=== PATIENT | female | born 1955 | race African-American/Black ===

== ENCOUNTER 2017-04-10 12:37 | Inpatient (IN) | payer OTHER ==
[2017-04-10 17:12] VITALS: BMI 24.7
--- NOTE | 2017-04-10 19:15 | HP ---
COWS - Scale Resting Pulse: 0= OR 80 or Below Sweatin= Chills/Flushing Restless Observation: 3= Extraneous Movement Pupil Size: 1= Pupils >than Normal Bone or Joint Aches: 2= Severe Diffuse Aches Runny Nose/ Eye Tearin= Runny Nose/Eyes GI Upset > 30mins: 1= Stomach Cramp Tremor Observation: 2= Slight Tremor Visible Yawning Observation: 0= None Anxiety or Irritability: 2=Irritable/Anxious Goose Flesh Skin: 0=Smooth Skin COWS Score: 14 CIWA Score - CIWA Score Nausea/Vomitin-Mild Nausea/No Vomiting Muscle Tremors: 4-Moderate,w/Arms Extend Anxiety: 4-Mod. Anxious/Guarded Agitation: 4-Moderately Restless Paroxysmal Sweats: 1-Minimal Palms Moist Orientation: 1-Uncertain about Date Tacttile Disturbances: 0-None Auditory Disturbances: 0-None Visual Disturbances: 0-None Headache: 1-Very Mild CIWA-Ar Total Score: 16 Admission ROS S - HPI Chief Complaint: WITHDRAWAL SX Allergies/Adverse Reactions: Allergies Allergy/AdvReac Type Severity Reaction Status Date / Time No Known Allergies Allergy Verified 04/10/17 18:15 History of Present Illness: 61 YEARS OLD FEMALE WITH LONG HISTORY OF ALCOHOL HEROIN NICOTINE DEPENDENCE HAS GERD AND DEPRESSION IS ADMITTED TO DETOX Exam Limitations: No Limitations - Ebola screening Have you traveled outside of the country in the last 21 days: No Have you had contact with anyone from an Ebola affected area: No Have you been sick,other than usual withdrawal symptoms: No Do you have a fever: No - Review of Systems Constitutional: Chills, Changes in sleep, Weight Stable EENT: reports: Other (CHRONIC DIZZINESS EYE GLASSES) Respiratory: reports: No Symptoms reported Cardiac: reports: No Symptoms Reported, Chest Pain (TREATED AT HOSPITAL FROM -04/04 NEGATIVE DIAGNOSITC TESTS, NO TREATMENT) GI: reports: Nausea, Poor Fluid Intake, Indigestion, Abdominal cramping : reports: No Symptoms Reported Musculoskeletal: reports: Back Pain, Joint Pain, Muscle Pain, Neck Pain Integumentary: reports: No Symptoms Reported Neuro: reports: Tremors Endocrine: reports: No Symptoms Reported Hematology: reports: No Symptoms Reported Psychiatric: reports: Judgement Intact, Depressed Other Systems: Reviewed and Negative Patient History - Patient Medical History Hx Anemia: No Hx Asthma: No Hx Chronic Obstructive Pulmonary Disease (COPD): No Hx Cancer: No Hx Cardiac Disorders: No Hx Congestive Heart Failure: No Hx Hypertension: No Hx Hypercholesterolemia: No Hx Pacemaker: No HX Cerebrovascular Accident: No Hx Seizures: No Hx Dementia: No Hx Diabetes: No Hx Gastrointestinal Disorders: Yes Hx Liver Disease: No Hx Genitourinary Disorders: No Hx Sexually Transmitted Disorders: No Hx Renal Disease (ESRD): No Hx Thyroid Disease: No Hx Human Immunodeficiency Virus (HIV): No Hx Hepatitis C: No Hx Depression: Yes Hx Suicide Attempt: No Hx Bipolar Disorder: No Hx Schizophrenia: No - Patient Surgical History Past Surgical History: Yes Hx Neurologic Surgery: No Hx Cataract Extraction: No Hx Cardiac Surgery: No Hx Lung Surgery: No Hx Breast Surgery: No Hx Breast Biopsy: No Hx Abdominal Surgery: Yes (2013 INTESTINAL OBSTRUCTION ) Hx Appendectomy: No Hx Cholecystectomy: No Hx Genitourinary Surgery: No Hx Section: No Hx Orthopedic Surgery: Yes (RIGHT WRIST GANGLIOMA REMOVED 2010) Hx Hysterectomy: Yes (1978) Anesthesia Reaction: No - PPD History Previous Implant?: Yes Documented Results: Negative w/o proof Implanted On Prior R Admission?: No PPD to be Administered?: Yes - Reproductive History Patient is a Female of Child Bearing Age (11 -55 yrs old): No Patient : No - Smoking Cessation Smoking history: Current every day smoker Have you smoked in the past 12 months: Yes Aproximately how many cigarettes per day: 5 Cigars Per Day: 0 Hx Chewing Tobacco Use: No Initiated information on smoking cessation: Yes 'Breaking Loose' booklet given: 04/10/17 - Substance & Tx. History Hx Alcohol Use: Yes Hx Substance Use: Yes Substance Use Type: Alcohol, Opiates Hx Substance Use Treatment: Yes - Substances Abused Alcohol Route: Oral Frequency: Daily Amount used: LIQUOR- 2 PINTS, BEER- 1 SIX PACK Age of first use: 14 Date of Last Use: 04/10/17 Heroin Route: Inhalation Frequency: Daily Amount used: 15 BAGS Age of first use: 18 Date of Last Use: 04/10/17 Family Disease History - Family Disease History Family Disease History: Heart Disease: Mother (), Other: Father (KILLED ) Admission Physical Exam BHS - Vital Signs Vital Signs: Vital Signs - 24 hr 04/10/17 17:09 Temperature 98.1 F Pulse Rate 78 Respiratory 18 Rate Blood Pressure 134/75 - Physical General Appearance: Yes: Appropriately Dressed, Mild Distress, Thin, Tremorous, Irritable, Sweating, Anxious HEENTM: Yes: Hearing grossly Normal, Normal ENT Inspection, Normocephalic, Normal Voice Respiratory: Yes: Chest Non-Tender, Lungs Clear, Normal Breath Sounds, No Respiratory Distress, No Accessory Muscle Use Neck: Yes: Supple, Trachea in good position Breast: Yes: Breasts Symetrical Cardiology: Yes: Regular Rhythm, Regular Rate, S1, S2 Abdominal: Yes: Non Tender, Soft Genitourinary: Yes: Within Normal Limits Back: Yes: Normal Inspection Musculoskeletal: Yes: full range of Motion, Gait Steady, Back pain, Muscle Pain Extremities: Yes: Normal Inspection, Normal Range of Motion, Non-Tender, Tremors Neurological: Yes: Alert, Motor Strength 5/5, Normal Response, Depressed Affect Integumentary: Yes: Warm Lymphatic: Yes: Within Normal Limits - Diagnostic (1) Alcohol dependence with uncomplicated withdrawal Current Visit: Yes Status: Acute (2) Opioid dependence with withdrawal Current Visit: Yes Status: Acute (3) GERD (gastroesophageal reflux disease) Current Visit: Yes Status: Chronic Qualifiers: Esophagitis presence: without esophagitis Qualified Code(s): K21.9 - Gastro-esophageal reflux disease without esophagitis (4) Nicotine dependence Current Visit: Yes Status: Acute Qualifiers: Nicotine product type: cigarettes Substance use status: in withdrawal Qualified Code(s): F17.213 - Nicotine dependence, cigarettes, with withdrawal (5) Depression (emotion) Current Visit: Yes Status: Suspected Qualifiers: Depression Type: dysthymia Qualified Code(s): F34.1 - Dysthymic disorder Cleared for Admission [facility] - Detox or Rehab [facility] Level of Care: Medically Managed Detox Regimen/Protocol: Methadone/Librium [facility] Breath Alcohol Content Breath Alcohol Content: 0 Urine Pregancy Test - Result Urine Test Results: Negative- NO Line Present Urine Drug Screen - Results Drug Screen Negative: No Urine Drug Screen Results: OPI-Opiates, OXY-Oxycodone
[2017-04-10] MEDS ORDERED: MAGNESIUM HYDROX 2400MG/30ML ORAL SUSPENSION 30 ML CUP PO PRN (19:24)
[2017-04-10] MEDS ORDERED: LOPERAMIDE HCL 2 MG CAPSULE PO PRN (19:24)
[2017-04-10] MEDS ORDERED: MENTHOL/PHENOL 1 EACH UD MM PRN (19:24)
[2017-04-10] MEDS ORDERED: diphenhydrAMINE HCL 50 MG CAPSULE PO PRN (19:24)
[2017-04-10] MEDS ORDERED: MAG HYDROX/AL HYDROX/SIMETH 30 ML UNIT-DOSE CUP PO PRN (19:24)
[2017-04-10] MEDS ORDERED: MAGNESIUM CITRATE 300 ML BOTTLE PO PRN (19:24)
[2017-04-10] MEDS ORDERED: chlordiazePOXIDE HCL 25 MG CAPSULE PO PRN (19:24)
[2017-04-10] MEDS ORDERED: NICOTINE POLACRILEX 2 MG GUM BC PRN (19:24)
[2017-04-10] MEDS ORDERED: guaiFENesin/D-METHORPHAN HB 10 ML UNIT-DOSE CUPS PO PRN (19:24)
[2017-04-10] MEDS ORDERED: METHADONE HCL 10 MG TABLET (FOR DETOX USE ONLY) PO ONE ×2 (19:24→23:00)
[2017-04-10] MEDS ORDERED: P-EPHED 60MG/TRIPROLIDI 2.5MG TABLET PO PRN (19:24)
[2017-04-10] MEDS: RANITIDINE HCL 150 MG TABLET (FP) PO SCH (22:52)
[2017-04-10] MEDS: chlordiazePOXIDE HCL 25 MG CAPSULE PO SCH (22:53)
[2017-04-10] MEDS: THIAMINE HCL 100 MG TABLET (FP) PO SCH (22:53)
[2017-04-11 01:52] LABS: URINE APPEARANCE CLEAR; URINE BILIRUBIN NEGATIVE (NEGATIVE); URINE BLOOD NEGATIVE (NEGATIVE); URINE COLOR AMBER; URINE GLUCOSE (UA) NEGATIVE (NEGATIVE); URINE KETONE NEGATIVE (NEGATIVE); URINE NITRITE NEGATIVE (NEGATIVE); URINE PROTEIN NEGATIVE (NEGATIVE); URINE UROBILINOGEN 2.0 E.U/dl E.U./dl (0.2-1.0)
[2017-04-11 03:04] LABS: URINE LEUK ESTERASE TRACE (NEGATIVE)
[2017-04-11 03:09] LABS: URINE MUCUS MANY; URINE RBC 3 /hpf (0-3); URINE WBC 2 /hpf (3-5)
[2017-04-11] MEDS: chlordiazePOXIDE HCL 25 MG CAPSULE PO SCH ×4 (05:55→23:00)
[2017-04-11] MEDS ORDERED: METHADONE HCL 10 MG TABLET (FOR DETOX USE ONLY) PO SCH (10:00)
[2017-04-11 10:49] LABS: MCH 26.9 pg (25.7-33.7); MCHC 33.2 g/dl (32.0-36.0); MEAN CELL VOLUME 81.2 fl (80-96); MEAN PLT VOLUME 9.9 fl (7.5-11.1); PLATELET COUNT 163 K/MM3 (134-434); RDW 14.5 % (11.6-15.6); WHITE BLOOD COUNT 5.2 K/mm3 (4.0-10.0)
[2017-04-11] MEDS: NICOTINE 14 MG/24 HOURS TOPICAL PATCH TD SCH (10:59)
[2017-04-11] MEDS: RANITIDINE HCL 150 MG TABLET (FP) PO SCH ×2 (10:59→23:00)
[2017-04-11] MEDS: PRENATAL VITAMINS W/ FOLIC ACID TABLET (FP) PO SCH (10:59)
[2017-04-11 11:28] LABS: ALBUMIN 3.1 g/dl (3.4-5.0); ALK PHOS 65 U/L (45-117); ANION GAP 9 (8-16); BILIRUBIN,TOTAL 0.2 mg/dL (0.2-1.0); CALCIUM 8.8 mg/dL (8.5-10.1); CO2 28 mmol/L (21-32); CREATININE 0.6 mg/dL (0.55-1.02); GLUCOSE,RANDOM 97 mg/dL (74-106); SGOT/AST 9 U/L (15-37); SGPT/ALT 9 U/L (12-78); TOT PROT 6.3 g/dl (6.4-8.2)
--- NOTE | 2017-04-11 16:09 | CONSULT ---
[facility] Psychiatric Consult - Data Date of interview: 04/11/17 Admission source: [facility] Identifying data: Readmission to [facility] for this 61 y/o AA female seeking detox treatment for alcohol and heroin dependence.Patient is single without children,domiciled,unemployed and supported on [facility] benefits. Substance Abuse History: - Smoking Cessation. Smoking history: Current every day smoker. Have you smoked in the past 12 months: Yes. Aproximately how many cigarettes per day: 5. Cigars Per Day: 0. Hx Chewing Tobacco Use: No. Initiated information on smoking cessation: Yes. 'Breaking Loose' booklet given : 04/10/17. - Substance & Tx. History. Hx Alcohol Use: Yes. Hx Substance Use : Yes. Substance Use Type: Alcohol, Opiates. Hx Substance Use Treatment: Yes. - Substances Abused. Alcohol. Route: Oral. Frequency: Daily. Amount used: LIQUOR- 2 PINTS, BEER- 1 SIX PACK. Age of first use: 14. Date of Last Use: 04/10/17. Heroin. Route: Inhalation. Frequency: Daily. Amount used: 15 BAGS. Age of first use: 18. Date of Last Use: 04/10/17. Confirmed by patient. Medical History: Arthritis,lupus,past history of intestinal obstruction (2013), hysterectomy (1978) and surgical excision of a ganglioma in the right wrist ( 2010). Psychiatric History: No reported history of psychiaric hospitalizations.Patient denies having received " any diagnosis of mental illness." Ms Bender is prescribed seroquel 50 mg/hs by her primary care doctor to address insomnia.No history of suicide attempts. Physical/Sexual Abuse/Trauma History: Patient denies. Additional Comment: Urine Drug Screen Results: OPI-Opiates, OXY-Oxycodone.Noted. Mental Status Exam - Mental Status Exam Alert and Oriented to: Time, Place, Person Cognitive Function: Good Patient Appearance: Well Groomed (edentulous) Mood: Hopeful, Euthymic Affect: Appropriate, Normal Range Patient Behavior: Fatigued, Appropriate, Cooperative Speech Pattern: Clear Voice Loudness: Normal Thought Process: Goal Oriented Hallucinations: Denies Suicidal Ideation: Denies Homicidal Ideation: Denies Insight/Judgement: Poor Sleep: Poorly, Difficulty falling asleep Appetite: Fair Muscle strength/Tone: Normal Gait/Station: Normal Psychiatric Findings - Problem List ([place] 1, 2,3) (1) Alcohol dependence with uncomplicated withdrawal Current Visit: Yes Status: Acute (2) Opioid dependence with withdrawal Current Visit: Yes Status: Acute (3) Nicotine dependence Current Visit: Yes Status: Acute Qualifiers: Nicotine product type: cigarettes Substance use status: in withdrawal Qualified Code(s): F17.213 - Nicotine dependence, cigarettes, with withdrawal (4) Substance induced mood disorder Current Visit: Yes Status: Acute (5) GERD (gastroesophageal reflux disease) Current Visit: Yes Status: Chronic Qualifiers: Esophagitis presence: without esophagitis Qualified Code(s): K21.9 - Gastro-esophageal reflux disease without esophagitis (6) Insomnia Current Visit: Yes Status: Acute - Initial Treatment Plan Initial Treatment Plan: Psychoeducation.Detoxification.Seroquel 50 mg po hs.Side effects/benefits discussed with the patient.Consent (verbal) given.Observation.Pharmacy claims reviewed : on 03/31/17 scripts were issued for seroquel 50 mg/hs # 30 tablets @ the [facility].NO scripts needed at discharge from [facility].
--- NOTE | 2017-04-11 18:45 | PN ---
S CIWA - CIWA Score Nausea/Vomitin Muscle Tremors: 4-Moderate,w/Arms Extend Anxiety: 3 Agitation: 1-Slight > Activity Paroxysmal Sweats: 3 Orientation: 2-Disoriented Date<2 days Tacttile Disturbances: 1-Very Mild Itch/Numbness Auditory Disturbances: 0-None Visual Disturbances: 2-Mild Sensitivity Headache: 0-None Present CIWA-Ar Total Score: 18 BHS COWS - Scale Resting Pulse: 0= [place] 80 or Below Sweatin=Flushed/Facial Moisture Restless Observation: 1= Difficult to Sit Still Pupil Size: 0= Normal to Room Light Bone or Joint Aches: 2= Severe Diffuse Aches Runny Nose/ Eye Tearin= Runny Nose/Eyes GI Upset > 30mins: 1= Stomach Cramp Tremor Observation of Outstretched Hands: 2= Slight Tremor Visible Yawning Observation: 1= 1-2x During Session Anxiety or Irritability: 2=Irritable/Anxious Goose Flesh Skin: 0=Smooth Skin COWS Score: 13 S Progress Note (SOAP) Subjective: Stomach Cramping, Tremors, Nausea, Sweating. Objective: PT. A & O X 2 (DISORIENTED ABOUT DAY / DATE). 04/11/17 18:42 Vital Signs Temperature 98.1 F 04/11/17 18:28 Pulse Rate 73 04/11/17 18:28 Respiratory Rate 18 04/11/17 18:28 Blood Pressure 100/58 04/11/17 18:28 O2 Sat by Pulse Oximetry (%) Laboratory Tests 04/10/17 04/11/17 04/11/17 00:35 07:50 07:50 WBC 5.2 RBC 4.33 Hgb 11.6 Hct 35.1 MCV 81.2 MCHC 33.2 RDW 14.5 Plt Count 163 MPV 9.9 Sodium 140 Potassium 3.8 Chloride 103 Carbon Dioxide 28 Anion Gap 9 BUN 12 Creatinine 0.6 Creat Clearance w eGFR > 60 Random Glucose 97 Calcium 8.8 Total Bilirubin 0.2 AST 9 L ALT 9 L Alkaline Phosphatase 65 Total Protein 6.3 L Albumin 3.1 L Urine Color Ashley Urine Appearance Clear Urine pH 6.0 Ur Specific [place] 1.020 Urine Protein Negative Urine Glucose (UA) Negative Urine Ketones Negative Urine Blood Negative Urine Nitrite Negative Urine Bilirubin Negative Urine Urobilinogen 2.0 e.u/dl H Ur Leukocyte Esterase Trace H Urine RBC 3 Urine WBC 2 Ur Epithelial Cells Rare Urine Mucus Many RPR Titer 04/11/17 07:50 WBC RBC Hgb Hct MCV MCHC RDW Plt Count MPV Sodium Potassium Chloride Carbon Dioxide Anion Gap BUN Creatinine Creat Clearance w eGFR Random Glucose Calcium Total Bilirubin AST ALT Alkaline Phosphatase Total Protein Albumin Urine Color Urine Appearance Urine pH Ur Specific [place] Urine Protein Urine Glucose (UA) Urine Ketones Urine Blood Urine Nitrite Urine Bilirubin Urine Urobilinogen Ur Leukocyte Esterase Urine RBC Urine WBC Ur Epithelial Cells Urine Mucus RPR Titer Nonreactive LABS NOTED. Assessment: 04/11/17 18:43 WITHDRAWAL SYMPTOMS. Plan: CONTINUE DETOX.
[2017-04-11] MEDS: THIAMINE HCL 100 MG TABLET (FP) PO SCH (23:00)
[2017-04-11] MEDS: QUEtiapine FUMARATE 50 MG TABLET PO SCH (23:00)
[2017-04-12] MEDS: chlordiazePOXIDE HCL 25 MG CAPSULE PO SCH ×3 (06:22→17:32)
[2017-04-12] MEDS: PRENATAL VITAMINS W/ FOLIC ACID TABLET (FP) PO SCH (10:38)
[2017-04-12] MEDS: METHADONE HCL 5 MG TABLET (FOR DETOX USE ONLY) PO SCH (10:38)
[2017-04-12] MEDS: RANITIDINE HCL 150 MG TABLET (FP) PO SCH ×2 (10:38→22:10)
[2017-04-12] MEDS: NICOTINE 14 MG/24 HOURS TOPICAL PATCH TD SCH (10:39)
[2017-04-12] MEDS: ACETAMINOPHEN 325 MG TABLET (FP) PO PRN (13:16)
--- NOTE | 2017-04-12 13:39 | PN ---
[facility] CIWA - CIWA Score Nausea/Vomitin-Mild Nausea/No Vomiting Muscle Tremors: 3 Anxiety: 4-Mod. Anxious/Guarded Agitation: 3 Paroxysmal Sweats: 3 Orientation: 0-Oriented Tacttile Disturbances: 0-None Auditory Disturbances: 0-None Visual Disturbances: 0-None Headache: 0-None Present CIWA-Ar Total Score: 14 S COWS - Scale Resting Pulse: 1= [place] 81-100 Sweatin=Flushed/Facial Moisture Restless Observation: 1= Difficult to Sit Still Pupil Size: 0= Normal to Room Light Bone or Joint Aches: 1= Mild Discomfort Runny Nose/ Eye Tearin= Runny Nose/Eyes GI Upset > 30mins: 2= Nausea/Diarrhea Tremor Observation of Outstretched Hands: 2= Slight Tremor Visible Yawning Observation: 1= 1-2x During Session Anxiety or Irritability: 2=Irritable/Anxious Goose Flesh Skin: 0=Smooth Skin COWS Score: 14 [facility] Progress Note (SOAP) Subjective: Anxiety,tremors,sweating,interrupted sleep,restless. Objective: 04/12/17 13:38 Last Vital Signs Temp Pulse Resp BP Pulse Ox 98.2 F 87 18 110/60 04/12/17 11:10 04/12/17 11:10 04/12/17 11:10 04/12/17 11:10 Laboratory Last Values WBC 5.2 K/mm3 (4.0-10.0) 04/11/17 07:50 RBC 4.33 M/mm3 (3.60-5.2) 04/11/17 07:50 Hgb 11.6 GM/dL (10.7-15.3) 04/11/17 07:50 Hct 35.1 % (32.4-45.2) 04/11/17 07:50 MCV 81.2 fl (80-96) 04/11/17 07:50 MCHC 33.2 g/dl (32.0-36.0) 04/11/17 07:50 RDW 14.5 % (11.6-15.6) 04/11/17 07:50 Plt Count 163 K/MM3 (134-434) 04/11/17 07:50 MPV 9.9 fl (7.5-11.1) 04/11/17 07:50 Sodium 140 mmol/L (136-145) 04/11/17 07:50 Potassium 3.8 mmol/L (3.5-5.1) 04/11/17 07:50 Chloride 103 mmol/L (98-107) 04/11/17 07:50 Carbon Dioxide 28 mmol/L (21-32) 04/11/17 07:50 Anion Gap 9 (8-16) 04/11/17 07:50 BUN 12 mg/dL (7-18) 04/11/17 07:50 Creatinine 0.6 mg/dL (0.55-1.02) 04/11/17 07:50 Creat Clearance w eGFR > 60 (>60) 04/11/17 07:50 Random Glucose 97 mg/dL (74-106) 04/11/17 07:50 Calcium 8.8 mg/dL (8.5-10.1) 04/11/17 07:50 Total Bilirubin 0.2 mg/dL (0.2-1.0) 04/11/17 07:50 AST 9 U/L (15-37) L 04/11/17 07:50 ALT 9 U/L (12-78) L 04/11/17 07:50 Alkaline Phosphatase 65 U/L (45-117) 04/11/17 07:50 Total Protein 6.3 g/dl (6.4-8.2) L 04/11/17 07:50 Albumin 3.1 g/dl (3.4-5.0) L 04/11/17 07:50 Urine Color Ashley 04/10/17 00:35 Urine Appearance Clear 04/10/17 00:35 Urine pH 6.0 (5.0-8.0) 04/10/17 00:35 Ur Specific [place] 1.020 (1.005-1.025) 04/10/17 00:35 Urine Protein Negative (NEGATIVE) 04/10/17 00:35 Urine Glucose (UA) Negative (NEGATIVE) 04/10/17 00:35 Urine Ketones Negative (NEGATIVE) 04/10/17 00:35 Urine Blood Negative (NEGATIVE) 04/10/17 00:35 Urine Nitrite Negative (NEGATIVE) 04/10/17 00:35 Urine Bilirubin Negative (NEGATIVE) 04/10/17 00:35 Urine Urobilinogen 2.0 e.u/dl E.U./dl (0.2-1.0) H 04/10/17 00:35 Ur Leukocyte Esterase Trace (NEGATIVE) H 04/10/17 00:35 Urine RBC 3 /hpf (0-3) 04/10/17 00:35 Urine WBC 2 /hpf (3-5) 04/10/17 00:35 Ur Epithelial Cells Rare /hpf (FEW) 04/10/17 00:35 Urine Mucus Many 04/10/17 00:35 RPR Titer Nonreactive (NONREACTIVE) 04/11/17 07:50 labs noted Assessment: 04/12/17 13:38 Withdrawal sx. Plan: Continue detox
[2017-04-12] MEDS: chlordiazePOXIDE 5 MG CAPSULE PO SCH (22:10)
[2017-04-12] MEDS: THIAMINE HCL 100 MG TABLET (FP) PO SCH (22:10)
[2017-04-12] MEDS: QUEtiapine FUMARATE 50 MG TABLET PO SCH (22:10)
[2017-04-13] MEDS: ACETAMINOPHEN 325 MG TABLET (FP) PO PRN ×2 (06:16→22:08)
[2017-04-13] MEDS: chlordiazePOXIDE 5 MG CAPSULE PO SCH ×3 (06:17→17:39)
[2017-04-13] MEDS: PRENATAL VITAMINS W/ FOLIC ACID TABLET (FP) PO SCH (10:20)
[2017-04-13] MEDS: NICOTINE 14 MG/24 HOURS TOPICAL PATCH TD SCH (10:21)
[2017-04-13] MEDS: METHADONE HCL 5 MG TABLET (FOR DETOX USE ONLY) PO SCH (10:21)
[2017-04-13] MEDS: RANITIDINE HCL 150 MG TABLET (FP) PO SCH ×2 (10:22→22:09)
--- NOTE | 2017-04-13 11:37 | EKG ---
Test Reason : Blood Pressure : / mmHG Vent. Rate : 067 BPM Atrial Rate : 067 BPM P-R Int : 162 ms QRS Dur : 074 ms QT Int : 418 ms P-R-T Axes : 054 -14 008 degrees QTc Int : 441 ms NORMAL SINUS RHYTHM POSSIBLE LEFT ATRIAL ENLARGEMENT INFERIOR INFARCT (CITED ON OR BEFORE 01-DEC-2008) ABNORMAL ECG WHEN COMPARED WITH ECG OF 01-DEC-2008 19:06, NO SIGNIFICANT CHANGE WAS FOUND Confirmed by MANAS MAYER MD ([id number]) on 04/13/2017 11:36:53 AM Referred By: Confirmed By:MANAS MAYER MD
--- NOTE | 2017-04-13 14:54 | PN ---
BHS Progress Note (SOAP) Subjective: Sweating, Stomach Cramping, Tremors. Objective: PT. A & O X 2 (DISORIENTED ABOUT DAY /DATE). PT. OBSERVED AMBULATING ON UNIT. NO ACUTE DISTRESS. PT. DENIES CHEST PAIN. 04/13/17 14:51 Vital Signs Temperature 96.4 F L 04/13/17 10:09 Pulse Rate 93 H 04/13/17 10:09 Respiratory Rate 18 04/13/17 10:09 Blood Pressure 125/76 04/13/17 10:09 O2 Sat by Pulse Oximetry (%) Laboratory Tests 04/10/17 04/11/17 04/11/17 00:35 07:50 07:50 WBC 5.2 RBC 4.33 Hgb 11.6 Hct 35.1 MCV 81.2 MCHC 33.2 RDW 14.5 Plt Count 163 MPV 9.9 Sodium 140 Potassium 3.8 Chloride 103 Carbon Dioxide 28 Anion Gap 9 BUN 12 Creatinine 0.6 Creat Clearance w eGFR > 60 Random Glucose 97 Calcium 8.8 Total Bilirubin 0.2 AST 9 L ALT 9 L Alkaline Phosphatase 65 Total Protein 6.3 L Albumin 3.1 L Urine Color Ashley Urine Appearance Clear Urine pH 6.0 Ur Specific [place] 1.020 Urine Protein Negative Urine Glucose (UA) Negative Urine Ketones Negative Urine Blood Negative Urine Nitrite Negative Urine Bilirubin Negative Urine Urobilinogen 2.0 e.u/dl H Ur Leukocyte Esterase Trace H Urine RBC 3 Urine WBC 2 Ur Epithelial Cells Rare Urine Mucus Many RPR Titer 04/11/17 07:50 WBC RBC Hgb Hct MCV MCHC RDW Plt Count MPV Sodium Potassium Chloride Carbon Dioxide Anion Gap BUN Creatinine Creat Clearance w eGFR Random Glucose Calcium Total Bilirubin AST ALT Alkaline Phosphatase Total Protein Albumin Urine Color Urine Appearance Urine pH Ur Specific [place] Urine Protein Urine Glucose (UA) Urine Ketones Urine Blood Urine Nitrite Urine Bilirubin Urine Urobilinogen Ur Leukocyte Esterase Urine RBC Urine WBC Ur Epithelial Cells Urine Mucus RPR Titer Nonreactive LABS NOTED. Assessment: 04/13/17 14:53 WITHDRAWAL SYMPTOMS. Plan: CONTINUE DETOX.
[2017-04-13] MEDS: QUEtiapine FUMARATE 50 MG TABLET PO SCH (22:09)
[2017-04-13] MEDS: THIAMINE HCL 100 MG TABLET (FP) PO SCH (22:09)
[2017-04-13] MEDS: chlordiazePOXIDE HCL 10 MG CAPSULE PO SCH (22:09)
[2017-04-14] MEDS: chlordiazePOXIDE HCL 10 MG CAPSULE PO SCH ×3 (05:29→17:47)
[2017-04-14] MEDS ORDERED: METHADONE HCL 10 MG TABLET (FOR DETOX USE ONLY) PO SCH (10:00)
[2017-04-14] MEDS: PRENATAL VITAMINS W/ FOLIC ACID TABLET (FP) PO SCH (10:12)
[2017-04-14] MEDS: RANITIDINE HCL 150 MG TABLET (FP) PO SCH ×2 (10:12→22:14)
[2017-04-14] MEDS: NICOTINE 14 MG/24 HOURS TOPICAL PATCH TD SCH (10:13)
[2017-04-14] MEDS ORDERED: LIDOCAINE 5% TOPICAL PATCH TP ONE (10:29)
--- NOTE | 2017-04-14 11:03 | PN ---
BHS Progress Note (SOAP) Subjective: INTERRUPTED SLEEP, LBP ON RT , NO DYSURIA , COUGH, SOB OR INJURY Objective: 04/14/17 11:01 Vital Signs Temperature 96.6 F L 04/14/17 09:36 Pulse Rate 94 H 04/14/17 09:36 Respiratory Rate 18 04/14/17 09:36 Blood Pressure 120/76 04/14/17 09:36 O2 Sat by Pulse Oximetry (%) Laboratory Tests 04/10/17 04/11/17 04/11/17 00:35 07:50 07:50 WBC 5.2 RBC 4.33 Hgb 11.6 Hct 35.1 MCV 81.2 MCHC 33.2 RDW 14.5 Plt Count 163 MPV 9.9 Sodium 140 Potassium 3.8 Chloride 103 Carbon Dioxide 28 Anion Gap 9 BUN 12 Creatinine 0.6 Creat Clearance w eGFR > 60 Random Glucose 97 Calcium 8.8 Total Bilirubin 0.2 AST 9 L ALT 9 L Alkaline Phosphatase 65 Total Protein 6.3 L Albumin 3.1 L Urine Color Ashley Urine Appearance Clear Urine pH 6.0 Ur Specific [place] 1.020 Urine Protein Negative Urine Glucose (UA) Negative Urine Ketones Negative Urine Blood Negative Urine Nitrite Negative Urine Bilirubin Negative Urine Urobilinogen 2.0 e.u/dl H Ur Leukocyte Esterase Trace H Urine RBC 3 Urine WBC 2 Ur Epithelial Cells Rare Urine Mucus Many RPR Titer 04/11/17 07:50 WBC RBC Hgb Hct MCV MCHC RDW Plt Count MPV Sodium Potassium Chloride Carbon Dioxide Anion Gap BUN Creatinine Creat Clearance w eGFR Random Glucose Calcium Total Bilirubin AST ALT Alkaline Phosphatase Total Protein Albumin Urine Color Urine Appearance Urine pH Ur Specific [place] Urine Protein Urine Glucose (UA) Urine Ketones Urine Blood Urine Nitrite Urine Bilirubin Urine Urobilinogen Ur Leukocyte Esterase Urine RBC Urine WBC Ur Epithelial Cells Urine Mucus RPR Titer Nonreactive PT AOX3 LYING IN BED WITH RT LBP DECREASED ROM Assessment: 04/14/17 11:02 WITHDRAWAL SX'S LBP Plan: CONT. DETOX INCREASE FLUIDS LIDOCAINE PATCH/D D/C IN AM
[2017-04-14] MEDS ORDERED: LIDOCAINE PATCH REMOVAL MC SCH ×2 (22:00)
[2017-04-14] MEDS: QUEtiapine FUMARATE 50 MG TABLET PO SCH (22:14)
[2017-04-14] MEDS: THIAMINE HCL 100 MG TABLET (FP) PO SCH (22:14)
[2017-04-15] MEDS ORDERED: METHADONE HCL 5 MG TABLET (FOR DETOX USE ONLY) PO SCH (06:00)
[2017-04-15 06:40] VITALS: BP 101/62; PULSE 82; TEMP 97.9
--- NOTE | 2017-04-15 08:22 | DS ---
[facility] Detox Discharge Summary Admission Date: 04/10/17 Discharge Date: 04/15/17 - History Present History: Alcohol Dependence, Opioid Dependence - Physical Exam Results Vital Signs: Vital Signs Temperature 97.9 F 04/15/17 06:00 Pulse Rate 82 04/15/17 06:00 Respiratory Rate 18 04/15/17 06:00 Blood Pressure 101/62 04/15/17 06:00 O2 Sat by Pulse Oximetry (%) - Treatment Hospital Course: Detox Protocol Followed, Detoxed Safely, Responded well, Discharged Condition Good, Rehab Referral Accepted - Medication Discharge Medications: Ambulatory Orders Gabapentin [Neurontin -] 300 mg PO TID 04/10/17 - Diagnosis (1) Alcohol dependence with uncomplicated withdrawal Current Visit: Yes Status: Chronic (2) Insomnia Current Visit: Yes Status: Chronic (3) Nicotine dependence Current Visit: Yes Status: Chronic Qualifiers: Nicotine product type: cigarettes Substance use status: uncomplicated Qualified Code(s): F17.210 - Nicotine dependence, cigarettes, uncomplicated (4) Opioid dependence with withdrawal Current Visit: Yes Status: Chronic (5) Substance induced mood disorder Current Visit: Yes Status: Chronic (6) GERD (gastroesophageal reflux disease) Current Visit: Yes Status: Chronic Qualifiers: Esophagitis presence: without esophagitis Qualified Code(s): K21.9 - Gastro-esophageal reflux disease without esophagitis (7) Depression (emotion) Current Visit: Yes Status: Suspected Qualifiers: Depression Type: dysthymia Qualified Code(s): F34.1 - Dysthymic disorder - AMA Did Patient Leave Against Medical Advice: No
[2017-04-15] MEDS ORDERED: LIDOCAINE 5% TOPICAL PATCH TP SCH (10:00)
== END 2017-04-15 09:25 | disposition home or self-care (01) | DRG 897 ==
LOC: YASAS 12:37 → Y6N 19:08
PROVIDERS: ADMIT Internal Medicine; ATTEND Internal Medicine
PROC: HZ2ZZZZ Detoxification Services for Substance Abuse Treatment (ICD-10-PCS; principal; 2017-04-15)
DX: F11.23 Opioid dependence with withdrawal (principal); F10.230 Alcohol dependence with withdrawal, uncomplicated; F17.210 Nicotine dependence, cigarettes, uncomplicated; F34.1 Dysthymic disorder; F19.24 Other psychoactive substance dependence with psychoactive substance-induced mood disorder; G47.00 Insomnia, unspecified; K21.9 Gastro-esophageal reflux disease without esophagitis
CPT/HCPCS: 36415; 80053; 81003; 81015; 85027; 86593; 86803; 87522; 93005; 93010

== ENCOUNTER 2017-08-13 15:01 | Inpatient (IN) | payer OTHER ==
[2017-08-13 16:36] VITALS: BMI 21.9
--- NOTE | 2017-08-13 16:36 | HP ---
COWS - Scale Resting Pulse: 0= [place] 80 or Below Sweatin= Chills/Flushing Restless Observation: 3= Extraneous Movement Pupil Size: 0= Normal to Room Light Bone or Joint Aches: 2= Severe Diffuse Aches Runny Nose/ Eye Tearin= Runny Nose/Eyes GI Upset > 30mins: 2= Nausea/Diarrhea Tremor Observation: 2= Slight Tremor Visible Yawning Observation: 0= None Anxiety or Irritability: 2=Irritable/Anxious Goose Flesh Skin: 0=Smooth Skin COWS Score: 14 CIWA Score - CIWA Score Nausea/Vomitin-Mild Nausea/No Vomiting Muscle Tremors: 4-Moderate,w/Arms Extend Anxiety: 4-Mod. Anxious/Guarded Agitation: 4-Moderately Restless Paroxysmal Sweats: 1-Minimal Palms Moist Orientation: 0-Oriented Tacttile Disturbances: 0-None Auditory Disturbances: 0-None Visual Disturbances: 0-None Headache: 0-None Present CIWA-Ar Total Score: 14 Admission ROS BHS - HPI Chief Complaint: withdrawal sx Allergies/Adverse Reactions: Allergies Allergy/AdvReac Type Severity Reaction Status Date / Time No Known Allergies Allergy Verified 04/10/17 18:15 History of Present Illness: 61 years old female with long history of alcohol opiate nicotine dependence, has lupus - not active and depression is admitted to detox Exam Limitations: No Limitations - Ebola screening Have you traveled outside of the country in the last 21 days: No Have you had contact with anyone from an Ebola affected area: No Have you been sick,other than usual withdrawal symptoms: No Do you have a fever: No - Review of Systems Constitutional: Loss of Appetite, Changes in sleep, Unintentional Wgt. Loss, Unexplained wgt Loss EENT: reports: Blurred Vision (eye glasses), Dental Problems (upper and lower) Respiratory: reports: No Symptoms reported Cardiac: reports: No Symptoms Reported GI: reports: Nausea, Poor Appetite, Poor Fluid Intake, Abdominal cramping : reports: No Symptoms Reported Musculoskeletal: reports: Joint Pain (arthritis knees + shoulders) Integumentary: reports: No Symptoms Reported Neuro: reports: Tremors Endocrine: reports: No Symptoms Reported Hematology: reports: No Symptoms Reported Psychiatric: reports: Judgement Intact, Orientated x3, Anxious, Depressed Other Systems: Reviewed and Negative Patient History - Patient Medical History Hx Anemia: No Hx Asthma: No Hx Chronic Obstructive Pulmonary Disease (COPD): No Hx Cancer: No Hx Cardiac Disorders: No Hx Congestive Heart Failure: No Hx Hypertension: No Hx Hypercholesterolemia: No Hx Pacemaker: No HX Cerebrovascular Accident: No Hx Seizures: No Hx Dementia: No Hx Diabetes: No Hx Gastrointestinal Disorders: No Hx Liver Disease: No Hx Genitourinary Disorders: No Hx Sexually Transmitted Disorders: No Hx Renal Disease (ESRD): No Hx Thyroid Disease: No Hx Human Immunodeficiency Virus (HIV): No Hx Hepatitis C: No Hx Depression: Yes Hx Suicide Attempt: No Hx Bipolar Disorder: No Hx Schizophrenia: No - Patient Surgical History Past Surgical History: Yes Hx Neurologic Surgery: No Hx Cataract Extraction: No Hx Cardiac Surgery: No Hx Lung Surgery: No Hx Breast Surgery: No Hx Breast Biopsy: No Hx Abdominal Surgery: Yes (2013 INTESTINAL OBSTRUCTION ) Hx Appendectomy: No Hx Cholecystectomy: No Hx Genitourinary Surgery: No Hx Section: No Hx Orthopedic Surgery: Yes (RIGHT WRIST GANGLIOMA REMOVED 2010) Hx Hysterectomy: Yes (1978) Anesthesia Reaction: No - PPD History Previous Implant?: Yes Documented Results: Negative w/proof Implanted On Prior R Admission?: Yes Date: 04/12/17 PPD to be Administered?: No - Reproductive History Patient is a Female of Child Bearing Age (11 -55 yrs old): Yes Last Menstrual Period: 08/13/79 Patient : No - Smoking Cessation Smoking history: Current every day smoker Have you smoked in the past 12 months: Yes Aproximately how many cigarettes per day: 5 Cigars Per Day: 0 Hx Chewing Tobacco Use: No Initiated information on smoking cessation: Yes 'Breaking Loose' booklet given: 08/13/17 - Substance & Tx. History Hx Alcohol Use: Yes Hx Substance Use: Yes Substance Use Type: Alcohol, Heroin, Opiates Hx Substance Use Treatment: Yes (04/10-04/15/17 [facility] - Substances Abused Alcohol Route: Oral Frequency: Daily Amount used: pint volka Age of first use: 14 Date of Last Use: 08/13/17 Heroin Route: Inhalation Frequency: 3-6 times per week Amount used: 10 bags Age of first use: 28 Date of Last Use: 08/13/17 Family Disease History - Family Disease History Family Disease History: Heart Disease: Mother (), Other: Father (KILLED ) Admission Physical Exam [facility] - Physical General Appearance: Yes: Appropriately Dressed, Mild Distress, Tremorous, Irritable, Sweating, Anxious HEENTM: Yes: Hearing grossly Normal, Normal ENT Inspection, Normocephalic, Normal Voice Respiratory: Yes: Chest Non-Tender, Lungs Clear, Normal Breath Sounds, No Respiratory Distress, No Accessory Muscle Use Neck: Yes: Supple, Trachea in good position Breast: Yes: Breasts Symetrical Cardiology: Yes: Regular Rhythm, Regular Rate, S1, S2 Abdominal: Yes: Non Tender, Soft, Increased Bowel Sounds Genitourinary: Yes: Within Normal Limits Back: Yes: Normal Inspection Musculoskeletal: Yes: full range of Motion, Gait Steady, Back pain, Muscle Pain Extremities: Yes: Normal Inspection, Normal Range of Motion, Non-Tender, Tremors Neurological: Yes: Fully Oriented, Alert, Motor Strength 5/5, Normal Mood/Affect , Normal Response Integumentary: Yes: Warm Lymphatic: Yes: Within Normal Limits - Diagnostic (1) Alcohol dependence with uncomplicated withdrawal Current Visit: Yes Status: Acute (2) Nicotine dependence Current Visit: Yes Status: Acute Qualifiers: Nicotine product type: cigarettes Substance use status: in withdrawal Qualified Code(s): F17.213 - Nicotine dependence, cigarettes, with withdrawal (3) Opioid dependence with withdrawal Current Visit: Yes Status: Acute (4) Depression (emotion) Current Visit: Yes Status: Suspected Qualifiers: Depression Type: dysthymia Qualified Code(s): F34.1 - Dysthymic disorder (5) Weight loss Current Visit: Yes Status: Acute (6) Lupus Current Visit: Yes Status: Chronic Qualifiers: Lupus erythematosus form: unspecified Qualified Code(s): L93.0 - Discoid lupus erythematosus Cleared for Admission [facility] - Detox or Rehab [facility] Level of Care: Medically Managed Detox Regimen/Protocol: Methadone/Librium [facility] Breath Alcohol Content Breath Alcohol Content: 0 Vital Signs - Vital Signs Vital Signs Refused: No Temperature: 96.2 F Temperature Source: Oral Pulse Rate: 78 Respiratory Rate: 20 Blood Pressure: 130/78 BP Location: Left Arm Blood Pressure Position: Sitting - Height Height: 5 ft 4 in - Weight Weight: 128 lb Weight Measurement Method: Standing Scale Body Mass Index (BMI): 21.9 - Bowel Function Bowel Movement: Yes Urine Drug Screen - Control Is Test Valid: Yes - Results Drug Screen Negative: No Urine Drug Screen Results: OPI-Opiates, MTD-Methadone, OXY-Oxycodone
[2017-08-13] MEDS ORDERED: chlordiazePOXIDE HCL 25 MG CAPSULE PO PRN (18:16)
[2017-08-13] MEDS ORDERED: guaiFENesin/D-METHORPHAN HB 10 ML UNIT-DOSE CUPS PO PRN (18:16)
[2017-08-13] MEDS ORDERED: P-EPHED 60MG/TRIPROLIDI 2.5MG TABLET PO PRN (18:16)
[2017-08-13] MEDS ORDERED: MAGNESIUM CITRATE 300 ML BOTTLE PO PRN (18:16)
[2017-08-13] MEDS ORDERED: MAGNESIUM HYDROX 2400MG/30ML ORAL SUSPENSION 30 ML CUP PO PRN (18:16)
[2017-08-13] MEDS ORDERED: ACETAMINOPHEN 325 MG TABLET (FP) PO PRN (18:16)
[2017-08-13] MEDS ORDERED: MENTHOL/PHENOL 1 EACH UD MM PRN (18:16)
[2017-08-13] MEDS ORDERED: NICOTINE POLACRILEX 2 MG GUM BC PRN (18:16)
[2017-08-13] MEDS ORDERED: LOPERAMIDE HCL 2 MG CAPSULE PO PRN (18:16)
[2017-08-13] MEDS ORDERED: METHADONE HCL 10 MG TABLET (FOR DETOX USE ONLY) PO ONE ×2 (19:15→23:00)
[2017-08-13 22:00] LABS: URINE APPEARANCE TURBID; URINE BILIRUBIN NEGATIVE (NEGATIVE); URINE BLOOD NEGATIVE (NEGATIVE); URINE COLOR YELLOW; URINE GLUCOSE (UA) NEGATIVE (NEGATIVE); URINE KETONE NEGATIVE (NEGATIVE); URINE NITRITE NEGATIVE (NEGATIVE); URINE PROTEIN NEGATIVE (NEGATIVE); URINE UROBILINOGEN NEGATIVE mg/dL (0.2-1.0)
[2017-08-13 22:01] LABS: URINE LEUK ESTERASE 2+ (NEGATIVE)
[2017-08-13 22:05] LABS: URINE MUCUS MODERATE; URINE RBC 15 /hpf (0-3); URINE WBC 105 /hpf (3-5)
[2017-08-13] MEDS: THIAMINE HCL 100 MG TABLET (FP) PO SCH (22:17)
[2017-08-13] MEDS: GABAPENTIN 300 MG CAPSULE (FP) PO SCH (22:18)
[2017-08-13] MEDS: diphenhydrAMINE HCL 50 MG CAPSULE PO PRN (22:18)
[2017-08-13] MEDS: chlordiazePOXIDE HCL 25 MG CAPSULE PO SCH (22:18)
[2017-08-14] MEDS: chlordiazePOXIDE HCL 25 MG CAPSULE PO SCH ×4 (05:22→22:35)
[2017-08-14] MEDS: GABAPENTIN 300 MG CAPSULE (FP) PO SCH ×3 (06:58→22:35)
[2017-08-14 09:38] LABS: MCH 26.7 pg (25.7-33.7); MEAN CELL VOLUME 80.9 fl (80-96); MEAN PLT VOLUME 9.7 fl (7.5-11.1); PLATELET COUNT 162 K/MM3 (134-434); RDW 14.9 % (11.6-15.6)
[2017-08-14 09:53] LABS: ANION GAP 6 (8-16); BILIRUBIN,TOTAL 0.4 mg/dL (0.2-1.0); CALCIUM 8.3 mg/dL (8.5-10.1); CO2 30 mmol/L (21-32); CREATININE 0.7 mg/dL (0.55-1.02); GLUCOSE,RANDOM 91 mg/dL (74-106); SGOT/AST 6 U/L (15-37); SGPT/ALT 9 U/L (12-78); TOT PROT 6.2 g/dl (6.4-8.2)
[2017-08-14 09:54] LABS: ALK PHOS 63 U/L (45-117)
--- NOTE | 2017-08-14 09:55 | EKG ---
Test Reason : Blood Pressure : / mmHG Vent. Rate : 072 BPM Atrial Rate : 072 BPM P-R Int : 162 ms QRS Dur : 074 ms QT Int : 422 ms P-R-T Axes : 056 -01 036 degrees QTc Int : 462 ms NORMAL SINUS RHYTHM POSSIBLE LEFT ATRIAL ENLARGEMENT INFERIOR INFARCT (CITED ON OR BEFORE 01-DEC-2008) ABNORMAL ECG WHEN COMPARED WITH ECG OF 10-APR-2017 19:26, NO SIGNIFICANT CHANGE WAS FOUND Confirmed by RODRIGUEZ SETHI MD ([id number]) on 08/14/2017 9:54:58 AM Referred By: Confirmed By:RODRIGUEZ SETHI MD
[2017-08-14] MEDS ORDERED: METHADONE HCL 10 MG TABLET (FOR DETOX USE ONLY) PO SCH (10:00)
[2017-08-14] MEDS: NICOTINE 14 MG/24 HOURS TOPICAL PATCH TD SCH (11:00)
[2017-08-14] MEDS: PRENATAL VITAMINS W/ FOLIC ACID TABLET (FP) PO SCH (11:00)
--- NOTE | 2017-08-14 11:35 | PN ---
[facility] CIWA - CIWA Score Nausea/Vomitin Muscle Tremors: 3 Anxiety: 3 Agitation: 2 Paroxysmal Sweats: 1-Minimal Palms Moist Orientation: 0-Oriented Tacttile Disturbances: 1-Very Mild Itch/Numbness Auditory Disturbances: 1-Very Mild Visual Disturbances: 1-Very Mild Sensitivity Headache: 2-Mild CIWA-Ar Total Score: 17 BHS COWS - Scale Resting Pulse: 0= [place] 80 or Below Sweatin= Chills/Flushing Restless Observation: 3= Extraneous Movement Pupil Size: 1= Pupils >than Normal Bone or Joint Aches: 2= Severe Diffuse Aches Runny Nose/ Eye Tearin= Runny Nose/Eyes GI Upset > 30mins: 3= Vomiting/Diarrhea Tremor Observation of Outstretched Hands: 2= Slight Tremor Visible Yawning Observation: 1= 1-2x During Session Anxiety or Irritability: 2=Irritable/Anxious Goose Flesh Skin: 0=Smooth Skin COWS Score: 17 S Progress Note (SOAP) Subjective: alert,irritable,anxious,interrupted sleep,tremor,pain in the body and back Objective: 08/14/17 11:32 Vital Signs Temperature 97.7 F 08/14/17 06:00 Pulse Rate 63 08/14/17 06:00 Respiratory Rate 18 08/14/17 06:00 Blood Pressure 148/74 08/14/17 06:00 O2 Sat by Pulse Oximetry (%) ekg nsr,inverted t in v1 to v3 no chest pain,no sob,no dizziness Laboratory Last Values WBC 4.0 K/mm3 (4.0-10.0) 08/14/17 07:00 RBC 4.29 M/mm3 (3.60-5.2) 08/14/17 07:00 Hgb 11.4 GM/dL (10.7-15.3) 08/14/17 07:00 Hct 34.7 % (32.4-45.2) 08/14/17 07:00 MCV 80.9 fl (80-96) 08/14/17 07:00 MCH 26.7 pg (25.7-33.7) 08/14/17 07:00 MCHC 33.0 g/dl (32.0-36.0) 08/14/17 07:00 RDW 14.9 % (11.6-15.6) 08/14/17 07:00 Plt Count 162 K/MM3 (134-434) 08/14/17 07:00 MPV 9.7 fl (7.5-11.1) 08/14/17 07:00 Sodium 139 mmol/L (136-145) 08/14/17 07:00 Potassium 3.3 mmol/L (3.5-5.1) L 08/14/17 07:00 Chloride 103 mmol/L (98-107) 08/14/17 07:00 Carbon Dioxide 30 mmol/L (21-32) 08/14/17 07:00 Anion Gap 6 (8-16) L 08/14/17 07:00 BUN 11 mg/dL (7-18) 08/14/17 07:00 Creatinine 0.7 mg/dL (0.55-1.02) 08/14/17 07:00 Creat Clearance w eGFR > 60 (>60) 08/14/17 07:00 Random Glucose 91 mg/dL (74-106) 08/14/17 07:00 Calcium 8.3 mg/dL (8.5-10.1) L 08/14/17 07:00 Total Bilirubin 0.4 mg/dL (0.2-1.0) D 08/14/17 07:00 AST 6 U/L (15-37) L D 08/14/17 07:00 ALT 9 U/L (12-78) L 08/14/17 07:00 Alkaline Phosphatase 63 U/L (45-117) 08/14/17 07:00 Total Protein 6.2 g/dl (6.4-8.2) L 08/14/17 07:00 Albumin 3.0 g/dl (3.4-5.0) L 08/14/17 07:00 Urine Color Yellow 08/13/17 21:00 Urine Appearance Turbid 08/13/17 21:00 Urine pH 5.0 (5.0-8.0) 08/13/17 21:00 Ur Specific [place] >= 1.030 (1.005-1.025) H 08/13/17 21:00 Urine Protein Negative (NEGATIVE) 08/13/17 21:00 Urine Glucose (UA) Negative (NEGATIVE) 08/13/17 21:00 Urine Ketones Negative (NEGATIVE) 08/13/17 21:00 Urine Blood Negative (NEGATIVE) 08/13/17 21:00 Urine Nitrite Negative (NEGATIVE) 08/13/17 21:00 Urine Bilirubin Negative (NEGATIVE) 08/13/17 21:00 Urine Urobilinogen Negative mg/dL (0.2-1.0) 08/13/17 21:00 Urine RBC 15 /hpf (0-3) 08/13/17 21:00 Urine WBC 105 /hpf (3-5) 08/13/17 21:00 Urine Mucus Moderate 08/13/17 21:00 RPR Titer Nonreactive (NONREACTIVE) 08/14/17 07:00 Assessment: 08/14/17 11:34 withdrawal symptom Plan: continue detox,ua and urine for c/s,fluid r/o uti
--- NOTE | 2017-08-14 16:54 | CONSULT ---
[facility] Psychiatric Consult - Data Date of interview: 08/14/17 Admission source: [facility] Identifying data: Another admission to [facility] for this 61 y/o AA female seeking detox treatment on for alcohol and heroin dependence.Patient is single without children,domiciled,unemployed and supported on [facility] benefits. Substance Abuse History: Confirmed by patient in this interview. Smoking Cessation. Smoking history: Current every day smoker. Have you smoked in the past 12 months: Yes. Aproximately how many cigarettes per day: 5. Cigars Per Day: 0. Hx Chewing Tobacco Use: No. Initiated information on smoking cessation : Yes. 'Breaking Loose' booklet given: 08/13/17. - Substance & Tx. History. Hx Alcohol Use: Yes. Hx Substance Use: Yes. Substance Use Type: Alcohol, Heroin, Opiates. Hx Substance Use Treatment: Yes (04/10-04/15/17 [facility]). - Substances Abused. Alcohol. Route: Oral. Frequency: Daily. Amount used: pint volka. Age of first use: 14. Date of Last Use: 08/13/17. Heroin. Route: Inhalation. Frequency: 3-6 times per week. Amount used: 10 bags. Age of first use: 28. Date of Last Use: 08/13/17 Medical History: Arthritis,lupus,past history of intestinal obstruction (2013), hysterectomy (1978) and surgical excision of a ganglioma in the right wrist ( 2010). Psychiatric History: No reported history of psychiaric hospitalizations.Patient denies having received " any diagnosis of mental illness." Ms Bender is currently attending the [facility] OPD clinic under the care of Dr Slater.Prescribed seroquel 50 mg/hs.No history of suicide attempts. Physical/Sexual Abuse/Trauma History: Patient denies. Additional Comment: Urine Drug Screen Results: OPI-Opiates, MTD-Methadone, OXY- Oxycodone.Noted. Mental Status Exam - Mental Status Exam Alert and Oriented to: Time, Place, Person Cognitive Function: Good Patient Appearance: Well Groomed Mood: Hopeful, Euthymic Affect: Appropriate, Normal Range Patient Behavior: Cooperative Speech Pattern: Clear Voice Loudness: Normal Thought Process: Intact, Goal Oriented Thought Disorder: Not Present Hallucinations: Denies Suicidal Ideation: Denies Homicidal Ideation: Denies Insight/Judgement: Poor Sleep: Poorly, Difficulty falling asleep (wants 25 mg of seroquel) Appetite: Good Muscle strength/Tone: Normal Gait/Station: Normal Psychiatric Findings - Problem List ([place] 1, 2,3) (1) Alcohol dependence with uncomplicated withdrawal Current Visit: Yes Status: Acute (2) Nicotine dependence Current Visit: Yes Status: Acute Qualifiers: Nicotine product type: cigarettes Substance use status: in withdrawal Qualified Code(s): F17.213 - Nicotine dependence, cigarettes, with withdrawal (3) Opioid dependence with withdrawal Current Visit: Yes Status: Acute (4) Substance induced mood disorder Current Visit: Yes Status: Acute (5) Weight loss Current Visit: Yes Status: Chronic (6) Lupus Current Visit: Yes Status: Chronic Qualifiers: Lupus erythematosus form: unspecified Qualified Code(s): L93.0 - Discoid lupus erythematosus (7) GERD (gastroesophageal reflux disease) Current Visit: Yes Status: Chronic Qualifiers: Esophagitis presence: without esophagitis Qualified Code(s): K21.9 - Gastro-esophageal reflux disease without esophagitis (8) Insomnia Current Visit: Yes Status: Chronic - Initial Treatment Plan Initial Treatment Plan: Psychoeducation.Detoxification.Seroquel 25 mg po hs at patient's request.Side effcts/benefits are discussed with patient.Observation.NO scripts needed at discharge (refill from Dr Slater issued on 08/04/17).
[2017-08-14] MEDS: MAG HYDROX/AL HYDROX/SIMETH 30 ML UNIT-DOSE CUP PO PRN ×2 (17:28→22:37)
[2017-08-14] MEDS: THIAMINE HCL 100 MG TABLET (FP) PO SCH (22:35)
[2017-08-14] MEDS: diphenhydrAMINE HCL 50 MG CAPSULE PO PRN (22:35)
[2017-08-14] MEDS: QUEtiapine FUMARATE 25 MG TABLET (FP) PO SCH (22:35)
[2017-08-15] MEDS: GABAPENTIN 300 MG CAPSULE (FP) PO SCH ×3 (06:29→23:03)
[2017-08-15] MEDS: chlordiazePOXIDE HCL 25 MG CAPSULE PO SCH ×3 (06:29→18:04)
[2017-08-15] MEDS: IBUPROFEN 400 MG TABLET (FP) PO PRN ×2 (06:31→15:00)
[2017-08-15] MEDS: PRENATAL VITAMINS W/ FOLIC ACID TABLET (FP) PO SCH (11:16)
[2017-08-15] MEDS: NICOTINE 14 MG/24 HOURS TOPICAL PATCH TD SCH (11:16)
[2017-08-15] MEDS: METHADONE HCL 5 MG TABLET (FOR DETOX USE ONLY) PO SCH (11:17)
[2017-08-15] MEDS ORDERED: PANTOPRAZOLE 40 MG TABLET (FP) PO SCH (11:30)
[2017-08-15] MEDS ORDERED: RANITIDINE HCL 150 MG TABLET (FP) PO ONE (14:45)
--- NOTE | 2017-08-15 16:44 | PN ---
[facility] CIWA - CIWA Score Nausea/Vomitin Muscle Tremors: 3 Anxiety: 3 Agitation: 3 Paroxysmal Sweats: 1-Minimal Palms Moist Orientation: 0-Oriented Tacttile Disturbances: 1-Very Mild Itch/Numbness Auditory Disturbances: 1-Very Mild Visual Disturbances: 0-None Headache: 2-Mild CIWA-Ar Total Score: 17 BHS COWS - Scale Resting Pulse: 0= [place] 80 or Below Sweatin= Chills/Flushing Restless Observation: 3= Extraneous Movement Pupil Size: 1= Pupils >than Normal Bone or Joint Aches: 2= Severe Diffuse Aches Runny Nose/ Eye Tearin= Runny Nose/Eyes GI Upset > 30mins: 2= Nausea/Diarrhea Tremor Observation of Outstretched Hands: 2= Slight Tremor Visible Yawning Observation: 1= 1-2x During Session Anxiety or Irritability: 2=Irritable/Anxious Goose Flesh Skin: 0=Smooth Skin COWS Score: 16 S Progress Note (SOAP) Subjective: ALERT,IRRITABLE,ANXIOUS,INTERRUPTED SLEEP,TREMOR,PAIN IN THE BODY,BACK,PAIN IN THE EPIGASTRIUM Objective: 08/15/17 16:41 Vital Signs Temperature 98.1 F 08/15/17 13:47 Pulse Rate 75 08/15/17 13:47 Respiratory Rate 18 08/15/17 13:47 Blood Pressure 120/65 08/15/17 13:47 O2 Sat by Pulse Oximetry (%) Vital Signs Temperature 98.1 F 08/15/17 13:47 Pulse Rate 75 08/15/17 13:47 Respiratory Rate 18 08/15/17 13:47 Blood Pressure 120/65 08/15/17 13:47 O2 Sat by Pulse Oximetry (%) 08/15/17 16:41 Laboratory Last Values WBC 4.0 K/mm3 (4.0-10.0) 08/14/17 07:00 RBC 4.29 M/mm3 (3.60-5.2) 08/14/17 07:00 Hgb 11.4 GM/dL (10.7-15.3) 08/14/17 07:00 Hct 34.7 % (32.4-45.2) 08/14/17 07:00 MCV 80.9 fl (80-96) 08/14/17 07:00 MCH 26.7 pg (25.7-33.7) 08/14/17 07:00 MCHC 33.0 g/dl (32.0-36.0) 08/14/17 07:00 RDW 14.9 % (11.6-15.6) 08/14/17 07:00 Plt Count 162 K/MM3 (134-434) 08/14/17 07:00 MPV 9.7 fl (7.5-11.1) 08/14/17 07:00 Sodium 139 mmol/L (136-145) 08/14/17 07:00 Potassium 3.3 mmol/L (3.5-5.1) L 08/14/17 07:00 Chloride 103 mmol/L (98-107) 08/14/17 07:00 Carbon Dioxide 30 mmol/L (21-32) 08/14/17 07:00 Anion Gap 6 (8-16) L 08/14/17 07:00 BUN 11 mg/dL (7-18) 08/14/17 07:00 Creatinine 0.7 mg/dL (0.55-1.02) 08/14/17 07:00 Creat Clearance w eGFR > 60 (>60) 08/14/17 07:00 Random Glucose 91 mg/dL (74-106) 08/14/17 07:00 Calcium 8.3 mg/dL (8.5-10.1) L 08/14/17 07:00 Total Bilirubin 0.4 mg/dL (0.2-1.0) D 08/14/17 07:00 AST 6 U/L (15-37) L D 08/14/17 07:00 ALT 9 U/L (12-78) L 08/14/17 07:00 Alkaline Phosphatase 63 U/L (45-117) 08/14/17 07:00 Total Protein 6.2 g/dl (6.4-8.2) L 08/14/17 07:00 Albumin 3.0 g/dl (3.4-5.0) L 08/14/17 07:00 Urine Color Yellow 08/13/17 21:00 Urine Appearance Turbid 08/13/17 21:00 Urine pH 5.0 (5.0-8.0) 08/13/17 21:00 Ur Specific [place] >= 1.030 (1.005-1.025) H 08/13/17 21:00 Urine Protein Negative (NEGATIVE) 08/13/17 21:00 Urine Glucose (UA) Negative (NEGATIVE) 08/13/17 21:00 Urine Ketones Negative (NEGATIVE) 08/13/17 21:00 Urine Blood Negative (NEGATIVE) 08/13/17 21:00 Urine Nitrite Negative (NEGATIVE) 08/13/17 21:00 Urine Bilirubin Negative (NEGATIVE) 08/13/17 21:00 Urine Urobilinogen Negative mg/dL (0.2-1.0) 08/13/17 21:00 Urine RBC 15 /hpf (0-3) 08/13/17 21:00 Urine WBC 105 /hpf (3-5) 08/13/17 21:00 Urine Mucus Moderate 08/13/17 21:00 RPR Titer Nonreactive (NONREACTIVE) 08/14/17 07:00 Assessment: 08/15/17 16:42 WITHDRAWAL SYMPTOM,DID NOT WANT PROTONIX,HISTORY OF GERD,ZANTAC 150 MGS PO BID, URINE FOR C/S ,UTI,BACTRIM DA 1 TAB PO BID
[2017-08-15] MEDS: THIAMINE HCL 100 MG TABLET (FP) PO SCH (23:03)
[2017-08-15] MEDS: QUEtiapine FUMARATE 25 MG TABLET (FP) PO SCH (23:03)
[2017-08-15] MEDS: SULFAMETHOXAZOLE/TRIMETHOPRIM 800MG/160MG D.S. TABLET PO SCH (23:03)
[2017-08-15] MEDS: chlordiazePOXIDE 5 MG CAPSULE PO SCH (23:03)
[2017-08-15] MEDS: RANITIDINE HCL 150 MG TABLET (FP) PO SCH (23:03)
[2017-08-16] MEDS: chlordiazePOXIDE 5 MG CAPSULE PO SCH ×3 (06:20→18:25)
[2017-08-16] MEDS: GABAPENTIN 300 MG CAPSULE (FP) PO SCH ×3 (06:21→22:46)
[2017-08-16] MEDS: SULFAMETHOXAZOLE/TRIMETHOPRIM 800MG/160MG D.S. TABLET PO SCH ×2 (11:15→22:46)
[2017-08-16] MEDS: RANITIDINE HCL 150 MG TABLET (FP) PO SCH ×2 (11:15→22:47)
[2017-08-16] MEDS: PRENATAL VITAMINS W/ FOLIC ACID TABLET (FP) PO SCH (11:15)
[2017-08-16] MEDS: METHADONE HCL 5 MG TABLET (FOR DETOX USE ONLY) PO SCH (11:16)
[2017-08-16] MEDS: NICOTINE 14 MG/24 HOURS TOPICAL PATCH TD SCH (11:16)
--- NOTE | 2017-08-16 14:27 | PN ---
BHS Progress Note (SOAP) Subjective: ALERT,IRRITABLE,ANXIOUS,INTERRUPTED SLEEP,PAIN IN THE BODY Objective: 08/16/17 14:24 Vital Signs Temperature 97.5 F L 08/16/17 14:01 Pulse Rate 79 08/16/17 14:01 Respiratory Rate 18 08/16/17 14:01 Blood Pressure 129/64 08/16/17 14:01 O2 Sat by Pulse Oximetry (%) 08/16/17 14:26 08/16/17 14:26 Assessment: 08/16/17 14:26 WITHDRAWAL SYMPTOM Plan: CONTINUE DETOX,URINE FOR C/S
[2017-08-16 17:52] LABS: URINE APPEARANCE CLEAR; URINE BILIRUBIN NEGATIVE (NEGATIVE); URINE BLOOD NEGATIVE (NEGATIVE); URINE COLOR YELLOW; URINE GLUCOSE (UA) NEGATIVE (NEGATIVE); URINE KETONE NEGATIVE (NEGATIVE); URINE LEUK ESTERASE NEGATIVE (NEGATIVE); URINE NITRITE NEGATIVE (NEGATIVE); URINE PROTEIN NEGATIVE (NEGATIVE); URINE UROBILINOGEN NEGATIVE mg/dL (0.2-1.0)
[2017-08-16] MEDS: IBUPROFEN 400 MG TABLET (FP) PO PRN (18:24)
[2017-08-16] MEDS: THIAMINE HCL 100 MG TABLET (FP) PO SCH (22:46)
[2017-08-16] MEDS: chlordiazePOXIDE HCL 10 MG CAPSULE PO SCH (22:46)
[2017-08-16] MEDS: QUEtiapine FUMARATE 25 MG TABLET (FP) PO SCH (22:46)
[2017-08-17] MEDS: chlordiazePOXIDE HCL 10 MG CAPSULE PO SCH ×3 (06:10→17:33)
[2017-08-17] MEDS: GABAPENTIN 300 MG CAPSULE (FP) PO SCH ×3 (06:10→22:20)
[2017-08-17] MEDS: IBUPROFEN 400 MG TABLET (FP) PO PRN (06:11)
[2017-08-17] MEDS ORDERED: METHADONE HCL 10 MG TABLET (FOR DETOX USE ONLY) PO SCH (10:00)
[2017-08-17] MEDS: PRENATAL VITAMINS W/ FOLIC ACID TABLET (FP) PO SCH (10:42)
[2017-08-17] MEDS: SULFAMETHOXAZOLE/TRIMETHOPRIM 800MG/160MG D.S. TABLET PO SCH ×2 (10:42→22:20)
[2017-08-17] MEDS: RANITIDINE HCL 150 MG TABLET (FP) PO SCH ×2 (10:42→22:21)
[2017-08-17] MEDS ORDERED: SIMETHICONE 80 MG TAB.CHEW (FP) PO PRN (10:46)
--- NOTE | 2017-08-17 11:47 | PN ---
BHS Progress Note (SOAP) Subjective: gas agitation Objective: 08/17/17 11:46 Vital Signs Temperature 97.7 F 08/17/17 09:38 Pulse Rate 78 08/17/17 09:38 Respiratory Rate 18 08/17/17 09:38 Blood Pressure 98/54 08/17/17 09:38 O2 Sat by Pulse Oximetry (%) aaox3 ambulating no acute distress Assessment: 08/17/17 11:47 mild withdrawal sx Plan: continue detox gas x ordered d/c in am
[2017-08-17] MEDS: NICOTINE 14 MG/24 HOURS TOPICAL PATCH TD SCH (13:55)
[2017-08-17] MEDS: QUEtiapine FUMARATE 25 MG TABLET (FP) PO SCH (22:21)
[2017-08-17] MEDS: THIAMINE HCL 100 MG TABLET (FP) PO SCH (22:21)
[2017-08-18] MEDS: IBUPROFEN 400 MG TABLET (FP) PO PRN (00:49)
[2017-08-18] MEDS ORDERED: METHADONE HCL 5 MG TABLET (FOR DETOX USE ONLY) PO SCH (06:00)
[2017-08-18] MEDS: GABAPENTIN 300 MG CAPSULE (FP) PO SCH (06:16)
[2017-08-18 07:20] VITALS: BP 117/66; PULSE 82; TEMP 97.9
[2017-08-18] MEDS: PRENATAL VITAMINS W/ FOLIC ACID TABLET (FP) PO SCH (09:07)
[2017-08-18] MEDS: RANITIDINE HCL 150 MG TABLET (FP) PO SCH (09:07)
[2017-08-18] MEDS: NICOTINE 14 MG/24 HOURS TOPICAL PATCH TD SCH (09:07)
[2017-08-18] MEDS: SULFAMETHOXAZOLE/TRIMETHOPRIM 800MG/160MG D.S. TABLET PO SCH (09:07)
--- NOTE | 2017-08-18 09:44 | DS ---
[facility] Detox Discharge Summary Admission Date: 08/13/17 Discharge Date: 08/18/17 - History Present History: Alcohol Dependence, Opioid Dependence - Physical Exam Results Vital Signs: Vital Signs Temperature 97.9 F 08/18/17 06:00 Pulse Rate 82 08/18/17 06:00 Respiratory Rate 18 08/18/17 06:00 Blood Pressure 117/66 08/18/17 06:00 O2 Sat by Pulse Oximetry (%) - Treatment Hospital Course: Detox Protocol Followed, Detoxed Safely, Responded well, Discharged Condition Good, Rehab Referral Accepted - Medication Discharge Medications: Ambulatory Orders Gabapentin [Neurontin -] 300 mg PO TID 04/10/17 Quetiapine Fumarate [Seroquel -] 25 mg PO BID #60 tab 08/04/17 Lansoprazole [Prevacid -] 30 mg PO DAILY 08/13/17 Sulfamethoxazole/Trimethoprim [Bactrim DS -] 1 each PO BID #22 tablet 08/18/17 - Diagnosis (1) Alcohol dependence with uncomplicated withdrawal Current Visit: Yes Status: Chronic (2) Nicotine dependence Current Visit: Yes Status: Chronic Qualifiers: Nicotine product type: cigarettes Substance use status: uncomplicated Qualified Code(s): F17.210 - Nicotine dependence, cigarettes, uncomplicated; F17.210 - Nicotine dependence, cigarettes, uncomplicated (3) Opioid dependence with withdrawal Current Visit: Yes Status: Chronic (4) Substance induced mood disorder Current Visit: Yes Status: Acute (5) GERD (gastroesophageal reflux disease) Current Visit: Yes Status: Chronic Qualifiers: Esophagitis presence: without esophagitis Qualified Code(s): K21.9 - Gastro-esophageal reflux disease without esophagitis; K21.9 - Gastro- esophageal reflux disease without esophagitis; K21.9 - Gastro-esophageal reflux disease without esophagitis (6) Insomnia Current Visit: Yes Status: Chronic (7) Lupus Current Visit: Yes Status: Chronic Qualifiers: Lupus erythematosus form: unspecified Qualified Code(s): L93.0 - Discoid lupus erythematosus; L93.0 - Discoid lupus erythematosus (8) Weight loss Current Visit: Yes Status: Chronic - AMA Did Patient Leave Against Medical Advice: No
--- NOTE | 2017-08-18 09:54 | EKG ---
Test Reason : Blood Pressure : / mmHG Vent. Rate : 067 BPM Atrial Rate : 067 BPM P-R Int : 166 ms QRS Dur : 084 ms QT Int : 468 ms P-R-T Axes : 063 -04 024 degrees QTc Int : 494 ms NORMAL SINUS RHYTHM INFERIOR INFARCT (CITED ON OR BEFORE 01-DEC-2008) NONSPECIFIC T WAVE ABNORMALITY ABNORMAL ECG WHEN COMPARED WITH ECG OF 13-AUG-2017 19:15, NO SIGNIFICANT CHANGE WAS FOUND Confirmed by KARINA MOODY MD ([id number]) on 08/18/2017 9:53:24 AM Referred By: Confirmed By:KARINA MOODY MD
== END 2017-08-18 09:20 | disposition home or self-care (01) | DRG 897 ==
LOC: YASAS 15:01 → Y6N 19:33
PROVIDERS: ADMIT Internal Medicine; ATTEND Internal Medicine
PROC: HZ2ZZZZ Detoxification Services for Substance Abuse Treatment (ICD-10-PCS; principal; 2017-08-13)
DX: F11.23 Opioid dependence with withdrawal (principal); F10.230 Alcohol dependence with withdrawal, uncomplicated; F17.210 Nicotine dependence, cigarettes, uncomplicated; F19.24 Other psychoactive substance dependence with psychoactive substance-induced mood disorder; G47.00 Insomnia, unspecified; L93.0 Discoid lupus erythematosus; K21.9 Gastro-esophageal reflux disease without esophagitis; R63.4 Abnormal weight loss; Z68.22 Body mass index [BMI] 22.0-22.9, adult
CPT/HCPCS: 36415; 80053; 81003; 81015; 85027; 86593; 87086; 93005; 93010

== ENCOUNTER 2017-09-01 10:27 | Emergency (ER) | payer OTHER ==
[2017-09-01 10:34] VITALS: BP 144/84; PULSE 74; TEMP 98; BMI 24.9
[2017-09-01] MEDS ORDERED: KETOROLAC TROMETHAMINE 30 MG/1 ML VIAL IM ONE (11:51)
[2017-09-01] MEDS ORDERED: KETOROLAC TROMETHAMINE 30 MG/1 ML VIAL ONE (11:54)
--- NOTE | 2017-09-01 11:57 | PDOC ---
History of Present Illness - General Chief Complaint: Chronic pain Stated Complaint: SHOULDERS PAIN Time Seen by Provider: 09/01/17 11:19 History Source: Patient - History of Present Illness Occurred: reports: this morning Upper Extremity Pain Location: right: shoulder Past History - Past Medical History Allergies/Adverse Reactions: Allergies Allergy/AdvReac Type Severity Reaction Status Date / Time No Known Allergies Allergy Verified 09/01/17 10:31 Home Medications: Ambulatory Orders Gabapentin [Neurontin -] 300 mg PO TID 04/10/17 Quetiapine Fumarate [Seroquel -] 25 mg PO BID #60 tab 08/04/17 Lansoprazole [Prevacid -] 30 mg PO DAILY 08/13/17 Sulfamethoxazole/Trimethoprim [Bactrim DS -] 1 each PO BID #22 tablet 08/18/17 Anemia: No Asthma: No Cancer: No Cardiac Disorders: No CVA: No COPD: No CHF: No Dementia: No Diabetes: No GI Disorders: No Disorders: No HTN: No Hypercholesterolemia: No Kidney Stones: No Liver Disease: No Seizures: No Thyroid Disease: No Other medical history: LUPUS. ARTHRITIS. - Surgical History Abdominal Surgery: Yes (2013 INTESTINAL OBSTRUCTION ) Appendectomy: No Cardiac Surgery: No Cholecystectomy: No Lung Surgery: No Neurologic Surgery: No Orthopedic Surgery: Yes (RIGHT WRIST GANGLIOMA REMOVED 2010) - Reproductive History PID: No - Suicide/Smoking/Psychosocial Hx Smoking History: Current every day smoker Have you smoked in the past 12 months: Yes Number of Cigarettes Smoked Daily: 4 Cigars Per Day: 0 Information on smoking cessation initiated: No 'Breaking Loose' booklet given: 08/13/17 Hx Alcohol Use: No Drug/Substance Use Hx: No Substance Use Type: None Hx Substance Use Treatment: Yes (04/10-04/15/17 [facility]) Review of Systems - Review of Systems Constitutional: Yes: Chills, Fever Musculoskeletal: Yes: Joint Pain. No: Joint Swelling *Physical Exam - Vital Signs Last Vital Signs Temp Pulse Resp BP Pulse Ox 98 F 74 18 144/84 100 09/01/17 10:30 09/01/17 10:30 09/01/17 10:30 09/01/17 10:30 09/01/17 10:30 - Physical Exam General Appearance: Yes: Appropriately Dressed. No: Apparent Distress HEENT: positive: Normal Voice Neck: positive: Supple Respiratory/Chest: negative: Respiratory Distress Extremity: positive: Normal Inspection, Normal Range of Motion, Tender ( diffusely to b/l shoulder w/ pain w/ ROM). negative: Swelling Integumentary: positive: Dry, Warm Neurologic: positive: Fully Oriented, Alert, Normal Mood/Affect, Motor Strength 5/5 Medical Decision Making - Medical Decision Making 09/01/17 11:56 61 yo F, endorse h/o chronic b/l shoulder pain w/ rotator cuff tear to L shoulder on MRI 10/31 at [facility], follows up with pain management and, on percocet, states she is scheduled for MRI of right shoulder in the near future. Here because she recently ran out of her medication and states she started to have right shoulder pain this a.m. No recent trauma. States she has since contacted her pain doctor for refill and waiting for doctor to call her back See exam Acute on chronic b/l shoulder pain Rotator cuff tear to L shoulder on MRI 10/31 based on chart review -pain control in ED -dc w/ pain management f/u 09/01/17 11:57 09/01/17 12:07 *DC/Admit/Observation/Transfer Diagnosis at time of Disposition: Chronic shoulder pain Qualifiers: Laterality: bilateral Qualified Code(s): M25.511 - Pain in right shoulder; M25.511 - Pain in right shoulder; M25.512 - Pain in left shoulder; M25.512 - Pain in left shoulder; G89.29 - Other chronic pain; G89.29 - Other chronic pain - Discharge Dispostion Disposition: HOME Condition at time of disposition: Good - Patient Instructions Additional Instructions: Please follow-up with your pain specialist for medication refill
== END 2017-09-01 11:59 | disposition home or self-care (01) ==
LOC: JERFT 10:27 → SUPCPDRO 10:27 → JERFT 11:59
PROC: 3E0233Z Introduction of Anti-inflammatory into Muscle, Percutaneous Approach (ICD-10-PCS; principal; 2017-09-01)
DX: M25.511 Pain in right shoulder (principal); M25.512 Pain in left shoulder; G89.29 Other chronic pain; M32.9 Systemic lupus erythematosus, unspecified; M12.9 Arthropathy, unspecified; F17.210 Nicotine dependence, cigarettes, uncomplicated
CPT/HCPCS: 96372; 99281-25

== ENCOUNTER 2017-12-22 10:31 | Emergency (ER) | payer OTHER ==
[2017-12-22 11:06] VITALS: BP 122/98; PULSE 62; TEMP 98.3; BMI 24.1
[2017-12-22] MEDS ORDERED: KETOROLAC TROMETHAMINE 60 MG/2 ML VIAL IM ONE (12:15)
[2017-12-22] MEDS ORDERED: KETOROLAC TROMETHAMINE 60 MG/2 ML VIAL ONE (12:18)
--- NOTE | 2017-12-22 12:22 | PDOC ---
History of Present Illness - General Chief Complaint: Pain Stated Complaint: RT SHOULDER PAIN Time Seen by Provider: 12/22/17 11:51 History Source: Patient - History of Present Illness Occurred: reports: other Severity: reports: severe Upper Extremity Pain Location: right: shoulder Past History - Past Medical History Allergies/Adverse Reactions: Allergies Allergy/AdvReac Type Severity Reaction Status Date / Time No Known Allergies Allergy Verified 12/22/17 11:02 Home Medications: Ambulatory Orders Gabapentin [Neurontin -] 300 mg PO TID 04/10/17 Quetiapine Fumarate [Seroquel -] 25 mg PO BID #60 tab 08/04/17 Lansoprazole [Prevacid -] 30 mg PO DAILY 08/13/17 Sulfamethoxazole/Trimethoprim [Bactrim DS -] 1 each PO BID #22 tablet 08/18/17 Acetaminophen [Tylenol] 2 tab PO Q6H #30 tablet 12/22/17 Tramadol HCl 50 mg PO Q6H #15 tablet MDD 200 mg 12/22/17 Anemia: No Asthma: No Cancer: No Cardiac Disorders: No CVA: No COPD: No CHF: No Dementia: No Diabetes: No GI Disorders: No Disorders: No HTN: No Hypercholesterolemia: No Kidney Stones: No Liver Disease: No Seizures: No Thyroid Disease: No - Surgical History Abdominal Surgery: Yes (2013 INTESTINAL OBSTRUCTION ) Appendectomy: No Cardiac Surgery: No Cholecystectomy: No Lung Surgery: No Neurologic Surgery: No Orthopedic Surgery: Yes (RIGHT WRIST GANGLIOMA REMOVED 2010) - Reproductive History PID: No - Suicide/Smoking/Psychosocial Hx Smoking History: Current every day smoker Have you smoked in the past 12 months: Yes Number of Cigarettes Smoked Daily: 5 Cigars Per Day: 0 Information on smoking cessation initiated: Yes 'Breaking Loose' booklet given: 08/13/17 Hx Alcohol Use: No Drug/Substance Use Hx: No Substance Use Type: None Hx Substance Use Treatment: Yes (04/10-04/15/17 [facility]) Review of Systems - Review of Systems Constitutional: No: Chills, Fever Musculoskeletal: Yes: Joint Pain. No: Joint Swelling Neurological: No: Numbness, Tingling *Physical Exam - Vital Signs Last Vital Signs Temp Pulse Resp BP Pulse Ox 98.3 F 62 20 122/98 100 12/22/17 11:02 12/22/17 11:02 12/22/17 11:02 12/22/17 11:02 12/22/17 11:02 - Physical Exam General Appearance: Yes: Appropriately Dressed, Mild Distress HEENT: positive: Normal Voice Respiratory/Chest: negative: Respiratory Distress Extremity: positive: Normal Inspection, Other (LROM 2/2 pain, NVI, pulses intact , strength intact). negative: Tender, Swelling Medical Decision Making - Medical Decision Making 12/22/17 12:17 62-year-old female, history of lupus, on Plaquenil, arthritis, chronic bilateral shoulder pain with diagnosis of high-grade supraspinatus tendon tear and tendinopathy on MRI of left shoulder in 2016, did not have MRI of right shoulder as per patient, here with worsening pain to right shoulder for a month worsened that worsened last night. Taking Aleve with no significant relief. Patient recently moved [place] and does not yet have a PMD, pharm tech or orthopedic. Patient well-appearing and in no apparent distress. No swelling, atrophy or obvious deformity to right shoulder, but has significant pain to superior aspect of right scapula on shoulder abduction only. Neurovascular vascular and strength intact bilaterally. Pain control in ED. Will dc with prescription and give referral for orthopedic, rheumatology and primary care 12/22/17 12:27 *DC/Admit/Observation/Transfer Diagnosis at time of Disposition: Chronic left shoulder pain - Discharge Dispostion Disposition: HOME Condition at time of disposition: Improved - Prescriptions Prescriptions: Acetaminophen [Tylenol] 2 tab PO Q6H #30 tablet Tramadol HCl 50 mg PO Q6H #15 tablet MDD 200 mg - Referrals Referrals: Claude Mccann [Primary Care Provider] - Samm Franks MD [Staff Physician] - Paresh Cortes MD [Staff Physician] - Nithin Angeles MD [Staff Physician] - - Patient Instructions Additional Instructions: Take medication as directed. Follow-up with Dr. Cortes of orthopedic, Dr. Reyes of rheumatology and Dr Franks of primary care - Post Discharge Activity
== END 2017-12-22 12:30 | disposition home or self-care (01) ==
LOC: JERFT 10:31
PROC: 3E0233Z Introduction of Anti-inflammatory into Muscle, Percutaneous Approach (ICD-10-PCS; principal; 2017-12-22)
DX: M25.511 Pain in right shoulder (principal); Z87.39 Personal history of other diseases of the musculoskeletal system and connective tissue; M32.9 Systemic lupus erythematosus, unspecified; M12.9 Arthropathy, unspecified
CPT/HCPCS: 96372; 99281-25

== ENCOUNTER 2021-04-23 15:43 | Emergency (ER) | payer OTHER ==
[2021-04-23 16:28] VITALS: TEMP 98.2; BMI 24.3
[2021-04-23] MEDS ORDERED: ACETAMINOPHEN 500 MG TABLET (FP) PO ONE (17:14)
[2021-04-23] MEDS ORDERED: LIDOCAINE 5% TOPICAL PATCH TP ONE (17:14)
[2021-04-23] MEDS ORDERED: ACETAMINOPHEN 325 MG TABLET (FP) ONE (18:16)
[2021-04-23] MEDS ORDERED: LIDOCAINE 5% TOPICAL PATCH ONE (18:16)
[2021-04-23 19:01] LABS: BASO % 0.3 % (0-2.0); EOS % 2.7 % (0-4.5); HEMATOCRIT 35.3 % (32.4-45.2); HEMOGLOBIN 11.5 GM/dL (10.7-15.3); LYMPH % 42.6 % (8-40); MCH 26.7 pg (25.7-33.7); MCHC 32.6 g/dl (32.0-36.0); MEAN CELL VOLUME 81.9 fl (80-96); MEAN PLT VOLUME 8.5 fl (7.5-11.1); MONO % 7.1 % (3.8-10.2); NEUT % 47.3 % (42.8-82.8); PLATELET COUNT 228 K/MM3 (134-434); RBC 4.32 M/mm3 (3.60-5.2); RDW 15.6 % (11.6-15.6)
[2021-04-23 19:19] LABS: CHLORIDE 102 mmol/L (98-107); SODIUM 139 mmol/L (136-145)
[2021-04-23 19:22] LABS: ALBUMIN 3.7 g/dl (3.4-5.0); ANION GAP 4 MMOL/L (8-16); BLOOD UREA NITROGEN 10.4 mg/dL (7-18); CALCIUM 9.1 mg/dL (8.5-10.1); CO2 33 mmol/L (21-32); GLUCOSE,RANDOM 59 mg/dL (74-106)
[2021-04-23 19:25] LABS: CHOLESTEROL 196 mg/dL (50-200); CREATININE 0.8 mg/dL (0.55-1.3); SGOT/AST 10 U/L (15-37); SGPT/ALT 17 U/L (13-61)
[2021-04-23 19:26] LABS: BILIRUBIN,TOTAL 0.3 mg/dL (0.2-1); LDL CHOLESTEROL (ONLY SJRH) 98 mg/dL (5-100); TRIGLYCERIDES 107 mg/dL (0-150)
[2021-04-23 19:27] LABS: ALK PHOS 78 U/L (45-117); TOT PROT 7.2 g/dl (6.4-8.2)
[2021-04-23 19:28] LABS: HDL CHOLESTEROL 71 mg/dL (40-60)
[2021-04-23 19:31] VITALS: BP 121/71; PULSE 57
[2021-04-24] MEDS ORDERED: LIDOCAINE PATCH REMOVAL MC SCH (05:00)
== END 2021-04-23 20:27 | disposition home or self-care (01) ==
LOC: JER 15:43
DX: R42 Dizziness and giddiness (principal); E16.2 Hypoglycemia, unspecified
CPT/HCPCS: 36415; 71045-TC-FY; 80053; 80061; 82550; 82962; 83721; 84484; 85025; 93005; 93010; 99285-25; C9803; U0003; U0005

== ENCOUNTER 2021-08-07 11:19 | Observation (INO) | payer OTHER ==
[2021-08-07] MEDS ORDERED: ASPIRIN 81 MG CHEWABLE TABLETS ONE (11:48)
[2021-08-07] MEDS ORDERED: diphenhydrAMINE HCL 25 MG CAPSULE (FP) PO ONE (12:28)
[2021-08-07] MEDS ORDERED: FAMOTIDINE 20 MG TABLET PO ONE (12:29)
[2021-08-07] MEDS ORDERED: predniSONE 20 MG TABLET (UD) PO ONE (12:29)
[2021-08-07] MEDS ORDERED: ASPIRIN 81 MG CHEWABLE TABLETS PO ONE (12:56)
[2021-08-07 13:03] LABS: BASO % 1.2 % (0-2.0); EOS % 2.7 % (0-4.5); HEMATOCRIT 37.3 % (32.4-45.2); HEMOGLOBIN 12.3 GM/dL (10.7-15.3); LYMPH % 29.4 % (8-40); MCH 26.9 pg (25.7-33.7); MCHC 32.9 g/dl (32.0-36.0); MEAN CELL VOLUME 81.6 fl (80-96); MEAN PLT VOLUME 9.1 fl (7.5-11.1); MONO % 4.4 % (3.8-10.2); NEUT % 62.3 % (42.8-82.8); PLATELET COUNT 180 10^3/uL (134-434); RBC 4.58 M/mm3 (3.60-5.2); RDW 14.9 % (11.6-15.6); WHITE BLOOD COUNT 5.2 K/mm3 (4.0-10.0)
[2021-08-07 13:16] LABS: INR 1.01 (0.83-1.09); PROTHROMBIN TIME (PATIENT) 12.4 SEC (9.7-13.0)
[2021-08-07 13:19] LABS: ACTIVATED PTT 26.9 SECONDS (25.2-36.5)
[2021-08-07 13:41] LABS: ALBUMIN 3.5 g/dl (3.4-5.0); ALK PHOS 104 U/L (45-117); ANION GAP 4 MMOL/L (8-16); BILIRUBIN,TOTAL 0.2 mg/dL (0.2-1); BLOOD UREA NITROGEN 6.1 mg/dL (7-18); CHLORIDE 101 mmol/L (98-107); CO2 32 mmol/L (21-32); CREATININE 0.8 mg/dL (0.55-1.3); GLUCOSE,RANDOM 83 mg/dL (74-106); SGOT/AST 15 U/L (15-37); SGPT/ALT 14 U/L (13-61); SODIUM 138 mmol/L (136-145); TOT PROT 7.8 g/dl (6.4-8.2)
[2021-08-07] MEDS ORDERED: BISACODYL 5 MG TABLET.DR (FP) PO PRN (17:38)
[2021-08-07] MEDS ORDERED: ACETAMINOPHEN 325 MG TABLET (FP) PO PRN (17:38)
[2021-08-07] MEDS ORDERED: HEPARIN NA (PORCINE) 5,000 UNITS/ML 1ML VIAL ONE (21:46)
[2021-08-07] MEDS ORDERED: GABAPENTIN 100 MG CAPSULE ONE (21:46)
[2021-08-07] MEDS: HEPARIN NA (PORCINE) 5,000 UNITS/ML 1ML VIAL SQ SCH (21:53)
[2021-08-07] MEDS: GABAPENTIN 300 MG CAPSULE PO SCH (21:53)
[2021-08-07] MEDS: NICOTINE 7 MG/24 HOURS TOPICAL PATCH TD SCH (23:12)
[2021-08-08 00:07] VITALS: BMI 25.1
[2021-08-08] MEDS: GABAPENTIN 300 MG CAPSULE PO SCH ×2 (05:50→13:37)
[2021-08-08] MEDS ORDERED: REGADENOSON 0.4 MG/5 ML PRE-FILLED SYRINGE IVPUSH ONE ×2 (08:06→12:00)
[2021-08-08] MEDS ORDERED: methaDONE HCL 40 MG DISPERSABLE TABLET ONE (08:15)
[2021-08-08] MEDS ORDERED: methaDONE 40 MG, methaDONE 20 MG PO SCH (08:15)
[2021-08-08] MEDS ORDERED: methaDONE HCL 10 MG TABLET ONE (08:15)
[2021-08-08 09:10] VITALS: BP 102/66; PULSE 68; TEMP 98.5
[2021-08-08] MEDS ORDERED: MULTIVITAMINS (DAILY MVI) TABLET (FP) PO SCH (10:00)
[2021-08-08] MEDS ORDERED: PANTOPRAZOLE 40 MG TABLET PO SCH (10:00)
[2021-08-08] MEDS ORDERED: HYDROXYCHLOROQUINE SO4 200 MG TABLET (FP) PO SCH ×2 (10:00)
[2021-08-08] MEDS: HEPARIN NA (PORCINE) 5,000 UNITS/ML 1ML VIAL SQ SCH (13:01)
[2021-08-08] MEDS: NICOTINE 7 MG/24 HOURS TOPICAL PATCH TD SCH (13:01)
== END 2021-08-08 18:43 | disposition home or self-care (01) ==
LOC: JER 11:19 → JERBED 14:08 → INTOOBSV 14:08 → UNDOADMOB 14:08 → JERBED 22:12 → J4W 22:12 → JERBED 08-08 13:45
PROVIDERS: ADMIT Family Medicine; ATTEND Family Medicine
PROC: 3E023GC Introduction of Other Therapeutic Substance into Muscle, Percutaneous Approach (ICD-10-PCS; principal; 2021-08-08)
PROC: 3E033GC Introduction of Other Therapeutic Substance into Peripheral Vein, Percutaneous Approach (ICD-10-PCS; 2021-08-08)
DX: R07.9 Chest pain, unspecified (principal); M32.9 Systemic lupus erythematosus, unspecified; M17.0 Bilateral primary osteoarthritis of knee; E05.90 Thyrotoxicosis, unspecified without thyrotoxic crisis or storm; Z29.9 Encounter for prophylactic measures, unspecified
CPT/HCPCS: 36415; 71045-TC-FY; 71275-TC; 78452-TC; 80053; 80061; 82550; 84439; 84443; 84484; 85025; 85610; 85730; 93005; 93010; 93017; 93306-TC; 93308; 96372; 96374; 99285-25; A9502; C9803; G0378; J1644; J2785; Q9967; U0003; U0005

== ENCOUNTER 2022-03-14 11:22 | Emergency (ER) | payer OTHER ==
[2022-03-14 11:26] VITALS: BP 127/78; PULSE 77; TEMP 98.2; BMI 26.4
[2022-03-14] MEDS ORDERED: METHOCARBAMOL 500 MG TABLET PO ONE (13:08)
[2022-03-14] MEDS ORDERED: IBUPROFEN 600 MG TABLET (FP) PO ONE ×3 (13:08→13:12)
[2022-03-14] MEDS ORDERED: METHOCARBAMOL 500 MG TABLET ONE ×2 (13:09→13:12)
[2022-03-14 13:28] LABS: EPI CELLS 6 /uL (0-25.1); HYALINE CASTS 1 /uL (0-3.1); URINE APPEARANCE CLEAR; URINE BACTERIA >9,000 /uL (0-1359); URINE BILIRUBIN NEGATIVE (NEGATIVE); URINE COLOR DK YELLOW; URINE GLUCOSE (UA) NEGATIVE (NEGATIVE); URINE KETONE TRACE (NEGATIVE); URINE LEUK ESTERASE TRACE (NEGATIVE); URINE NITRITE POSITIVE (NEGATIVE); URINE PROTEIN TRACE (NEGATIVE); URINE RBC 25 /uL (0-23.9); URINE WBC 18 /uL (0-25.8)
== END 2022-03-14 15:22 | disposition home or self-care (01) ==
LOC: JER 11:22
DX: N30.00 Acute cystitis without hematuria (principal)
CPT/HCPCS: 71046-TC-FY; 81003; 99284-25

== ENCOUNTER 2022-05-09 11:38 | Emergency (ER) | payer OTHER ==
[2022-05-09 11:46] VITALS: BP 132/64; PULSE 73; TEMP 98.3; BMI 25.4
[2022-05-09] MEDS ORDERED: ACETAMINOPHEN 500 MG TABLET (FP) PO ONE (14:18)
[2022-05-09] MEDS ORDERED: LIDOCAINE 5% TOPICAL PATCH TP ONE (14:18)
[2022-05-09] MEDS ORDERED: oxyCODONE HCL 5 MG TABLET PO ONE (14:35)
[2022-05-09] MEDS ORDERED: oxyCODONE HCL 5 MG TABLET ONE (14:36)
[2022-05-09] MEDS ORDERED: LIDOCAINE 5% TOPICAL PATCH ONE (14:37)
[2022-05-09 15:09] LABS: EPI CELLS 30 /uL (0-25.1); HYALINE CASTS 5 /uL (0-3.1); URINE APPEARANCE CLEAR; URINE BACTERIA >9,000 /uL (0-1359); URINE BILIRUBIN NEGATIVE (NEGATIVE); URINE COLOR YELLOW; URINE GLUCOSE (UA) NEGATIVE (NEGATIVE); URINE KETONE NEGATIVE (NEGATIVE); URINE LEUK ESTERASE 1+ (NEGATIVE); URINE NITRITE POSITIVE (NEGATIVE); URINE PROTEIN TRACE (NEGATIVE); URINE RBC 16 /uL (0-23.9); URINE WBC 71 /uL (0-25.8)
[2022-05-09 16:58] LABS: BASO % 1.1 % (0-2.0); EOS % 4.7 % (0-4.5); HEMATOCRIT 31.7 % (32.4-45.2); HEMOGLOBIN 10.3 GM/dL (10.7-15.3); LYMPH % 24.4 % (8-40); MCH 26.3 pg (25.7-33.7); MCHC 32.6 g/dl (32.0-36.0); MEAN CELL VOLUME 80.7 fl (80-96); MEAN PLT VOLUME 8.5 fl (7.5-11.1); MONO % 8.7 % (3.8-10.2); NEUT % 61.1 % (42.8-82.8); PLATELET COUNT 263 10^3/uL (134-434); RBC 3.93 M/mm3 (3.60-5.2); RDW 17.7 % (11.6-15.6); WHITE BLOOD COUNT 6.5 K/mm3 (4.0-10.0)
[2022-05-09] MEDS ORDERED: CEFTRIAXONE 1 GM in DEXTROSE 5%-WATER - 100 ML IVPB ONE (17:09)
[2022-05-09 17:10] LABS: ALBUMIN 3.6 g/dl (3.4-5.0); BLOOD UREA NITROGEN 15.6 mg/dL (7-18); CALCIUM 9.3 mg/dL (8.5-10.1)
[2022-05-09 17:13] LABS: CREATININE 0.7 mg/dL (0.55-1.3)
[2022-05-09 17:14] LABS: BILIRUBIN,TOTAL 0.6 mg/dL (0.2-1); TOT PROT 8.3 g/dl (6.4-8.2)
[2022-05-09] MEDS ORDERED: LIDOCAINE PATCH REMOVAL MC ONE (22:00)
== END 2022-05-09 18:25 | disposition home or self-care (01) ==
LOC: JER 11:38 → JERFT 11:38 → JER 18:25
DX: N12 Tubulo-interstitial nephritis, not specified as acute or chronic (principal); M54.89 Other dorsalgia
CPT/HCPCS: 36415; 71275-TC; 80053; 81003; 85025; 87086; 87186; 93005; 93010; 99285-25; C9803-CS; Q9967; U0003; U0005

== ENCOUNTER 2023-03-08 16:58 | Emergency (ER) | payer OTHER ==
[2023-03-08 17:14] VITALS: BP 136/66; PULSE 75; RESP 18; TEMP 98.8; BMI 25.5
[2023-03-08] MEDS ORDERED: KETOROLAC TROMETHAMINE 15 MG/ML VIAL IVPUSH ONE (18:10)
[2023-03-08] MEDS ORDERED: KETOROLAC TROMETHAMINE 15 MG/ML VIAL ONE ×2 (18:18→19:31)
[2023-03-08 19:03] LABS: BASO % 0.8 % (0-2.0); EOS % 2.5 % (0-4.5); HEMATOCRIT 33.6 % (32.4-45.2); HEMOGLOBIN 11.2 GM/dL (10.7-15.3); LYMPH % 33.1 % (8-40); MCH 26.6 pg (25.7-33.7); MCHC 33.3 g/dl (32.0-36.0); MEAN CELL VOLUME 79.9 fl (80-96); MEAN PLT VOLUME 8.2 fl (7.5-11.1); NEUT % 57.6 % (42.8-82.8); PLATELET COUNT 191 10^3/uL (134-434); RBC 4.21 M/mm3 (3.60-5.2); RDW 16.3 % (11.6-15.6); WHITE BLOOD COUNT 5.9 K/mm3 (4.0-10.0)
[2023-03-08 19:34] LABS: CALCIUM 9.7 mg/dL (8.5-10.1)
[2023-03-08 19:35] LABS: ALBUMIN 3.5 g/dl (3.4-5.0); BLOOD UREA NITROGEN 10.2 mg/dL (7-18)
[2023-03-08 19:38] LABS: CREATININE 0.8 mg/dL (0.55-1.3)
[2023-03-08 19:40] LABS: BILIRUBIN,TOTAL 0.3 mg/dL (0.2-1); TOT PROT 8.2 g/dl (6.4-8.2)
== END 2023-03-08 21:54 | disposition home or self-care (01) ==
LOC: JER 16:58
PROC: 3E0333Z Introduction of Anti-inflammatory into Peripheral Vein, Percutaneous Approach (ICD-10-PCS; principal; 2023-03-08)
DX: R07.89 Other chest pain (principal); R06.2 Wheezing
CPT/HCPCS: 36415; 71045-TC-FY; 80053; 84484; 85025; 93005; 93010; 96374; 99285-25

== ENCOUNTER 2023-04-19 14:45 | Inpatient (IN) | payer OTHER ==
[2023-04-19] MEDS ORDERED: NALOXONE HCL 0.4 MG/ML VIAL ONE ×2 (14:55→15:52)
[2023-04-19] MEDS ORDERED: ONDANSETRON 4 MG TABLET PO ONE (15:08)
[2023-04-19] MEDS ORDERED: NALOXONE HCL 0.4 MG/ML VIAL IVPUSH ONE ×2 (15:08→15:50)
[2023-04-19] MEDS ORDERED: ONDANSETRON 4 MG/2 ML VIAL IVPUSH ONE (16:04)
[2023-04-19] MEDS ORDERED: ONDANSETRON 4 MG/2 ML VIAL ONE (16:06)
[2023-04-19] MEDS ORDERED: NALOXONE HCL 2 MG in DEXTROSE 5%-WATER - 495 ML IV SCH (16:30)
[2023-04-19 16:33] LABS: VENOUS BASE EXCESS 2.6 mmol/L (-2-2); VENOUS O2 SATURATION 50.6 % (70-80); VENOUS PCO2 54.8 mmHg (38-52); VENOUS PH 7.345 (7.310-7.410)
[2023-04-19 16:35] LABS: POTASSIUM 4.2 mmol/L (3.5-5.1)
[2023-04-19 16:37] LABS: ALBUMIN 3.3 g/dl (3.4-5.0); BLOOD UREA NITROGEN 13.2 mg/dL (7-18)
[2023-04-19 16:38] LABS: BASO % 0.7 % (0-2.0); EOS % 3.7 % (0-4.5); HEMATOCRIT 31.5 % (32.4-45.2); HEMOGLOBIN 10.4 GM/dL (10.7-15.3); LYMPH % 32.3 % (8-40); MCH 26.3 pg (25.7-33.7); MEAN CELL VOLUME 79.9 fl (80-96); MEAN PLT VOLUME 8.6 fl (7.5-11.1); NEUT % 58.3 % (42.8-82.8); PLATELET COUNT 213 10^3/uL (134-434); RBC 3.95 M/mm3 (3.60-5.2); RDW 16.3 % (11.6-15.6); WHITE BLOOD COUNT 6.3 K/mm3 (4.0-10.0)
[2023-04-19 16:40] LABS: CREATININE 0.8 mg/dL (0.55-1.3)
[2023-04-19 16:42] LABS: BILIRUBIN,TOTAL 0.2 mg/dL (0.2-1); TOT PROT 7.1 g/dl (6.4-8.2)
[2023-04-19 16:45] LABS: INR 1.04 (0.83-1.09); PROTHROMBIN TIME (PATIENT) 12.1 SEC (9.7-13.0)
[2023-04-19 16:48] LABS: ACTIVATED PTT 34.1 SECONDS (25.2-36.5)
[2023-04-19] MEDS: ENOXAPARIN NA (PORCINE) 30 MG/0.3 ML DISP.SYRIN SQ SCH (19:38)
[2023-04-19 19:50] LABS: COCAINE, UR NEGATIVE (NEGATIVE); URINE AMPHETAMINES NEGATIVE (NEGATIVE); URINE BARBITURATES NEGATIVE (NEGATIVE)
[2023-04-19 19:51] LABS: PHENCYCLIDINE,URINE NEGATIVE (NEGATIVE)
[2023-04-19 20:20] LABS: METHADONE, UR POSITIVE (NEGATIVE); OPIATES, URI POSITIVE (NEGATIVE); URINE BENZODIAZEPINES POSITIVE (NEGATIVE)
[2023-04-19] MEDS: MUPIROCIN 2% TOPICAL OINTMENT FOR DECOLONIZATION NS SCH (21:39)
[2023-04-19] MEDS ORDERED: CHLORHEXIDINE GLUCONATE 4% CLEANSER FOR DECOLONIZATION TP SCH (22:00)
[2023-04-19] MEDS: FAMOTIDINE 20 MG/50 ML IVPB 20 MG/50 ML MG IVPB SCH (22:04)
[2023-04-20 07:36] LABS: EOS % 3.6 % (0-4.5); HEMATOCRIT 29.4 % (32.4-45.2); HEMOGLOBIN 9.9 GM/dL (10.7-15.3); LYMPH % 31.2 % (8-40); MCH 26.6 pg (25.7-33.7); MCHC 33.7 g/dl (32.0-36.0); MEAN CELL VOLUME 79.1 fl (80-96); MEAN PLT VOLUME 8.9 fl (7.5-11.1); MONO % 5.9 % (3.8-10.2); NEUT % 58.3 % (42.8-82.8); PLATELET COUNT 182 10^3/uL (134-434); RBC 3.71 M/mm3 (3.60-5.2); RDW 16.1 % (11.6-15.6); WHITE BLOOD COUNT 5.5 K/mm3 (4.0-10.0)
[2023-04-20 07:41] LABS: BLOOD UREA NITROGEN 11.1 mg/dL (7-18); CALCIUM 8.7 mg/dL (8.5-10.1); POTASSIUM 4.7 mmol/L (3.5-5.1)
[2023-04-20 07:43] LABS: ALBUMIN 2.8 g/dl (3.4-5.0)
[2023-04-20 07:44] LABS: PHOSPHOROUS 3.6 mg/dL (2.5-4.9)
[2023-04-20 07:45] LABS: CREATININE 0.6 mg/dL (0.55-1.3)
[2023-04-20 07:46] LABS: BILIRUBIN,TOTAL 0.5 mg/dL (0.2-1); INR 1.15 (0.83-1.09); PROTHROMBIN TIME (PATIENT) 13.3 SEC (9.7-13.0); TOT PROT 6.4 g/dl (6.4-8.2)
[2023-04-20 07:48] LABS: ACTIVATED PTT 39.8 SECONDS (25.2-36.5)
[2023-04-20] MEDS: ENOXAPARIN NA (PORCINE) 30 MG/0.3 ML DISP.SYRIN SQ SCH (09:20)
[2023-04-20] MEDS: FAMOTIDINE 20 MG/50 ML IVPB 20 MG/50 ML MG IVPB SCH (09:20)
[2023-04-20] MEDS: MUPIROCIN 2% TOPICAL OINTMENT FOR DECOLONIZATION NS SCH ×2 (09:21→21:24)
[2023-04-20] MEDS ORDERED: PANTOPRAZOLE 40 MG TABLET PO SCH (10:00)
[2023-04-20 14:53] VITALS: BMI 25.4
[2023-04-20] MEDS: HYDROXYCHLOROQUINE SO4 200 MG TABLET (FP) PO SCH (21:22)
[2023-04-20] MEDS ORDERED: CHLORHEXIDINE GLUCONATE 4% CLEANSER FOR DECOLONIZATION TP SCH (22:00)
[2023-04-20] MEDS ORDERED: HYDROXYCHLOROQUINE SO4 200 MG TABLET (FP) PO SCH (22:00)
[2023-04-21] MEDS ORDERED: methaDONE HCL 10 MG TABLET PO SCH ×2 (06:00)
[2023-04-21 07:07] LABS: BASO % 1.1 % (0-2.0); EOS % 3.8 % (0-4.5); HEMOGLOBIN 10.4 GM/dL (10.7-15.3); LYMPH % 42.9 % (8-40); MCHC 32.5 g/dl (32.0-36.0); MEAN PLT VOLUME 8.8 fl (7.5-11.1); MONO % 5.8 % (3.8-10.2); NEUT % 46.4 % (42.8-82.8); PLATELET COUNT 209 10^3/uL (134-434); RBC 3.99 M/mm3 (3.60-5.2); RDW 16.1 % (11.6-15.6); WHITE BLOOD COUNT 5.1 K/mm3 (4.0-10.0)
[2023-04-21 07:30] LABS: POTASSIUM 4.2 mmol/L (3.5-5.1)
[2023-04-21 07:34] LABS: ALBUMIN 2.8 g/dl (3.4-5.0); BLOOD UREA NITROGEN 12.8 mg/dL (7-18); CALCIUM 8.7 mg/dL (8.5-10.1); MAGNESIUM 2.1 mg/dL (1.8-2.4)
[2023-04-21 07:37] LABS: CREATININE 0.7 mg/dL (0.55-1.3); PHOSPHOROUS 3.6 mg/dL (2.5-4.9)
[2023-04-21 07:39] LABS: BILIRUBIN,TOTAL 0.3 mg/dL (0.2-1); TOT PROT 6.5 g/dl (6.4-8.2)
[2023-04-21] MEDS: MUPIROCIN 2% TOPICAL OINTMENT FOR DECOLONIZATION NS SCH (09:25)
[2023-04-21] MEDS: HYDROXYCHLOROQUINE SO4 200 MG TABLET (FP) PO SCH ×2 (09:25→22:19)
[2023-04-21] MEDS ORDERED: ENOXAPARIN NA (PORCINE) 30 MG/0.3 ML DISP.SYRIN SQ SCH (10:00)
[2023-04-21] MEDS ORDERED: PANTOPRAZOLE 40 MG TABLET PO SCH (10:00)
[2023-04-21] MEDS ORDERED: ACETAMINOPHEN 500 MG TABLET (FP) PO ONE (18:00)
[2023-04-21] MEDS ORDERED: MUPIROCIN 2% TOPICAL OINTMENT FOR DECOLONIZATION NS SCH (22:00)
[2023-04-21] MEDS ORDERED: CHLORHEXIDINE GLUCONATE 4% CLEANSER FOR DECOLONIZATION TP SCH (22:00)
[2023-04-21] MEDS: KETOROLAC TROMETHAMINE 30 MG/1 ML VIAL IVPUSH SCH (22:20)
[2023-04-22] MEDS: KETOROLAC TROMETHAMINE 30 MG/1 ML VIAL IVPUSH SCH ×2 (03:22→10:36)
[2023-04-22] MEDS ORDERED: methaDONE HCL 10 MG TABLET PO SCH (06:00)
[2023-04-22] MEDS ORDERED: methaDONE 80 MG, methaDONE 10 MG PO SCH (06:00)
[2023-04-22 09:51] VITALS: BP 133/70; PULSE 62; RESP 17; TEMP 97.9
[2023-04-22] MEDS ORDERED: PANTOPRAZOLE 40 MG TABLET PO SCH (10:00)
[2023-04-22] MEDS ORDERED: ENOXAPARIN NA (PORCINE) 40 MG/0.4 ML DISP.SYRIN SQ SCH (10:00)
[2023-04-22] MEDS: HYDROXYCHLOROQUINE SO4 200 MG TABLET (FP) PO SCH (10:37)
== END 2023-04-22 12:47 | disposition home or self-care (01) | DRG 918 ==
LOC: JER 14:45 → JERBED 16:56 → JICU 19:23 → J6S 04-21 17:05
PROVIDERS: ADMIT Family Medicine; ATTEND Family Medicine
DX: T40.2X1A Poisoning by other opioids, accidental (unintentional), initial encounter (principal); F11.20 Opioid dependence, uncomplicated; Y92.89 Other specified places as the place of occurrence of the external cause; M32.9 Systemic lupus erythematosus, unspecified
CPT/HCPCS: 0241U-QW; 36415; 80053; 80307; 82803; 82962; 83735; 84100; 84484; 85025; 85610; 85730; 93005; 93010; 97116-GP; 97161-GP; 99285-25

== ENCOUNTER 2023-04-29 11:38 | Emergency (ER) | payer OTHER ==
[2023-04-29 11:44] VITALS: BP 139/58; PULSE 78; RESP 18; TEMP 98; BMI 25.4
[2023-04-29] MEDS ORDERED: KETOROLAC TROMETHAMINE 30 MG/1 ML VIAL IM ONE (12:38)
[2023-04-29] MEDS ORDERED: KETOROLAC TROMETHAMINE 30 MG/1 ML VIAL ONE (12:42)
== END 2023-04-29 13:24 | disposition home or self-care (01) ==
LOC: JERFT 11:38
PROC: 3E0233Z Introduction of Anti-inflammatory into Muscle, Percutaneous Approach (ICD-10-PCS; principal; 2023-04-29)
DX: M79.604 Pain in right leg (principal); M54.41 Lumbago with sciatica, right side
CPT/HCPCS: 99284-25